=== PATIENT | male | born 2000 | race Hispanic/Latino ===

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

== ENCOUNTER 2022-07-15 21:08 | Emergency (ER) | payer OTHER ==
--- OUTSIDE RECORDS SUMMARY | 2022-07-15 21:18 | XMS REPORT | Continuity of Care Document ---
:2000 Author Organization [facility] t Address [address] [place] [address] [place] [id number] Care Team Providers Name Role Phone Romelia Pena MD Attending Clinician ROMELIA PENA Attending Clinician Unavailable Doctor Unassigned, [place] Attending Clinician Unavailable BRANDON ZHENG Attending Clinician Unavailable 2, [facility] Attending Clinician Unavailable Brandon Middleton Attending Clinician Only, [facility] Bill Attending Clinician Unavailable Payers Payer Name Policy Type Policy Number Effective Date Expiration Date S ource Problems Condition Condition Condition Status Onset Resolution Last Treating Co mments Source Name Details Category Date Date Treatment Clinician Date Truancy Truancy Disease Active Univers 1-26 ity of 00:00: [place] 00 Medical Branch BMI (body BMI (body Disease Active Uni vers mass mass 1-26 ity of index), index), 00:00: [place] pediatric, pediatric, 00 Me dical less than less than Bran ch 5th 5th percentile percentile for age for age ADHD ADHD Disease Active 2016-05 Last Univers (attention (attention 0-18 Assessmen ity of deficit deficit 00:00: t & Plan: [place] hyperactiv hyperactiv 00 Dion is M edical ity ity in need Branch disorder), disorder), of a inattentiv inattentiv refill on e type e type his medicatio ns. He has been out of them for the past few months. He is currently in high school learning remotely. He hopes to graduate this year. He reports that he does well with his medicatio ns. There are no significa nt adverse side effects from the medicatio ns. He is currently on probation and reports that he is following weekly with his youth corrections officer. He denies any drug use currently . He is a new father!Pl an:Contin ue Adderall XR 30 mg each morning and Adderall 10 mg daily after lunch, no dosing change today.Pot ential side effect profile was reviewed with parent/pa miguel angel.Cou nseling services would be beneficia l, resources provided. Encourage d him to keep up with the [facility] for his probation and with his schoolwor k to graduate this year.Jason ratulated him on becoming father.Cu rrent symptoms and call the office with any concerns. He is 19 years old and should transitio n to an adult provider. Began the discussio n with him about this today. We'll provide him resources on his next follow-up visit.I answered specific questions asked by the patient. Allergies, Adverse Reactions, Alerts Allergy Allergy Status Severity Reaction(s) Onset Inactive Treating Comm ents Source Name Type Date Date Clinician NO KNOWN Drug Active Univers ALLERGIE Class ity of [facility] Social History Social Habit Start Date Stop Date Quantity Comments [facility] Exposure to Not sure [facility] SARS-CoV-2 [facility] (event) Branch Alcohol intake 2020-02-02 2020-02-02 Current [facility] 00:00:00 00:00:00 non-drinker of [facility] alcohol [place] (finding) Tobacco use and 2020-02-02 2020-02-02 Never used [facility] y of exposure 00:00:00 00:00:00 [facility] Smoking Status Start Date Stop Date Source Never smoker [facility] Medications Ordered Filled Start Stop Current Ordering Indication Dosage Frequency Signature Comments Components Source Medication Medication Date Date Medication? Clinician (SIG) Name Name amphetamine 2019-05 Yes [id number] 30mg Take 1 Univers -dextroamph 2-30 capsule by it y of etamine 30 00:00: mouth [place] mg 24 hr 00 every Medical capsule morning. Branch dextroamphe 2019-05 Yes [id number] 10mg Take 1 Univers tamine-amph 2-30 tablet by ity of etamine 00:[place]: [place] ([place] 00 lunch. Medical 10 mg Branch tablet amphetamine 2019-05 Yes [id number] 30mg Take 1 Univers -dextroamph 1-09 capsule by it y of etamine 30 00:00: mouth [place] mg 24 hr 00 every Medical capsule morning. Branch dextroamphe 2019-05 Yes [id number] 10mg Take 1 Univers tamine-amph 1-09 tablet by ity of etamine 00:00: [place] ([place] 00 lunch. Medical 10 mg Branch tablet amphetamine 2020- 2020- No [id number] 30mg Take 1 Univers -dextroamph 1-09 12-30 capsule by i ty of etamine 30 00:00: 00:00 mouth [place] mg 24 hr 00 :00 every Medical capsule morning. Branch dextroamphe 2019- 2020- No [id number] 10mg Take 1 Univers tamine-amph 1-09 -30 tablet by it y of etamine 00:00: 00:00 mouth with [place] (ADDERALL) 00 :00 lunch. Medical 10 mg Branch tablet amphetamine 2020- Yes [id number] 30mg Take 1 Univers -dextroamph 0-02 capsule by it y of etamine 30 00:00: mouth [place] mg 24 hr 00 every Medical capsule morning. Branch dextroamphe 2020- Yes [id number] 10mg Take 1 Univers tamine-amph 0-02 tablet by ity of etamine 00:00: [place] ([place] 00 lunch. Medical 10 mg Branch tablet amphetamine 2019- 2020- No [id number] 30mg Take 1 Univers -dextroamph 0-02 11-09 capsule by i ty of etamine 30 00:00: 00:00 mouth [place] mg 24 hr 00 :00 every Medical capsule morning. Branch dextroamphe 2019- 2020- No [id number] 10mg Take 1 Univers tamine-amph 0-02 11-09 tablet by it y of etamine 00:00: 00:00 mouth with [place] (ADDERALL) 00 :00 lunch. Medical 10 mg Branch tablet amphetamine 2020- Yes [id number] 30mg Take 1 Univers -dextroamph 0-01 capsule by it y of etamine 30 00:00: mouth [place] mg 24 hr 00 every Medical capsule morning. Branch dextroamphe 2020- Yes [id number] 10mg Take 1 Univers tamine-amph 0-01 tablet by ity of etamine 00:00: [place] ([place] 00 lunch. Medical 10 mg Branch tablet amphetamine 2020- Yes [id number] 30mg Take 1 Univers -dextroamph 0-01 capsule by it y of etamine 30 00:00: mouth [place] mg 24 hr 00 every Medical capsule morning. Branch dextroamphe 2020- Yes [id number] 10mg Take 1 Univers tamine-amph 0-01 tablet by ity of etamine 00:00: [place] ([place]DER[place] 00 lunch. Medical 10 mg Branch tablet amphetamine 2019-05- No [id number] 30mg Take 1 Univers -dextroamph 0-01 10-02 capsule by i ty of etamine 30 00:00: 00:00 mouth [place] mg 24 hr 00 :00 every Medical capsule morning. Branch dextroamphe 2019-2019- No [id number] 10mg Take 1 Univers tamine-amph 0-01 10-02 tablet by it y of etamine 00:00: 00:00 mouth with [place] (ADDERALL) 00 :00 lunch. Medical 10 mg Branch tablet amphetamine 2019-05- No [id number] 30mg Take 1 Univers -dextroamph 0-01 10-02 capsule by i ty of etamine 30 00:00: 00:00 mouth [place] mg 24 hr 00 :00 every Medical capsule morning. Branch dextroamphe 2019-05- No [id number] 10mg Take 1 Univers tamine-amph 0-01 10-02 tablet by it y of etamine 00:00: 00:00 mouth with [place] (ADDERALL) 00 :00 lunch. Medical 10 mg Branch tablet amphetamine 2019-05- No [id number] 30mg Take 1 Univers -dextroamph 0-01 10-02 capsule by i ty of etamine 30 00:00: 00:00 mouth [place] mg 24 hr 00 :00 every Medical capsule morning. Branch dextroamphe 2019-2019- No [id number] 10mg Take 1 Univers tamine-amph 0-01 10-02 tablet by it y of etamine 00:00: 00:00 mouth with [place] (ADDERALL) 00 :00 lunch. Medical 10 mg Branch tablet dextroamphe 2020- Yes [id number] 10mg Take 1 Univers tamine-amph 7-22 tablet by ity of etamine 00:00: [place] ([place] 00 lunch. Medical 10 mg Branch tablet amphetamine 2020- Yes [id number] 30mg Take 1 Univers -dextroamph 7-22 capsule by it y of etamine 30 00:00: mouth [place] mg 24 hr 00 every Medical capsule morning. Branch dextroamphe 2020-0 Yes [id number] 10mg Take 1 Univers tamine-amph 7-22 tablet by ity of etamine 00:00: [place] ([place]DER[place] 00 lunch. Medical 10 mg Branch tablet amphetamine 2020-0 Yes [id number] 30mg Take 1 Univers -dextroamph 7-22 capsule by it y of etamine 30 00:00: mouth [place] mg 24 hr 00 every Medical capsule morning. Branch dextroamphe 2020-0 Yes [id number] 10mg Take 1 Univers tamine-amph 7-22 tablet by ity of etamine 00:00: [place] (ADDER[place] 00 lunch. Medical 10 mg Branch tablet amphetamine 2020-0 Yes [id number] 30mg Take 1 Univers -dextroamph 7-22 capsule by it y of etamine 30 00:00: mouth [place] mg 24 hr 00 every Medical capsule morning. Branch dextroamphe 2020-0 Yes [id number] 10mg Take 1 Univers tamine-amph 7-22 tablet by ity of etamine 00:00: [place] (ADDERALL[place] 00 lunch. Medical 10 mg Branch tablet amphetamine 2020-0 Yes [id number] 30mg Take 1 Univers -dextroamph 7-22 capsule by it y of etamine 30 00:00: mouth [place] mg 24 hr 00 every Medical capsule morning. Branch dextroamphe 2020-0 2020- No [id number] 10mg Take 1 Univers tamine-amph 7-22 10-01 tablet by it y of etamine 00:00: 00:00 mouth with [place] (ADDERALL) 00 :00 lunch. Medical 10 mg Branch tablet amphetamine 2020-0 2020- No [id number] 30mg Take 1 Univers -dextroamph 7-22 10-01 capsule by i ty of etamine 30 00:00: 00:00 mouth [place] mg 24 hr 00 :00 every Medical capsule morning. Branch dextroamphe 2020-0 2020- No [id number] 10mg Take 1 Univers tamine-amph 7-22 10-01 tablet by it y of etamine 00:00: 00:00 mouth with [place] (ADDERALL) 00 :00 lunch. Medical 10 mg Branch tablet amphetamine 2020-0 2020- No [id number] 30mg Take 1 Univers -dextroamph 7-22 10-01 capsule by i ty of etamine 30 00:00: 00:00 mouth [place] mg 24 hr 00 :00 every Medical capsule morning. Branch azithromyci 2020-0 2020- No [id number] 1g Take 1 Univers n 10-25 Packet by ity of (ZITHROMAX) 00:00: 04:59 mouth once [place] 1 gram 00 :00 now for 1 Medical powder dose. Branch azithromyci 2020-0 2020- No [id number] 1g Take 1 Univers n 10-25 Packet by ity of (ZITHROMAX) 00:00: 04:59 mouth once [place] 1 gram 00 :00 now for 1 Medical powder dose. Branch azithromyci 2020-0 2020- No [id number] 1g Take 1 Univers n 10-25 Packet by ity of (ZITHROMAX) 00:00: 04:59 mouth once [place] 1 gram 00 :00 now for 1 Medical powder dose. Branch azithromyci 2020-0 2020- No [id number] 1g Take 1 Univers n 10-25 Packet by ity of (ZITHROMAX) 00:00: 04:59 mouth once [place] 1 gram 00 :00 now for 1 Medical powder dose. Branch azithromyci 2020-0 2020- No [id number] 1g Take 1 Univers n 10-25 Packet by ity of (ZITHROMAX) 00:00: 04:59 mouth once [place] 1 gram 00 :00 now for 1 Medical powder dose. Branch dextroamphe 2020-0 Yes [id number] 10mg Take 1 Univers tamine-amph 6-23 tablet by ity of etamine 00:00: mouth [place] (ADDERALL[place] 00 lunch. Medical 10 mg Branch tablet amphetamine 2020-0 Yes [id number] 30mg Take 1 Univers -dextroamph 6-23 capsule by it y of etamine 30 00:00: mouth [place] mg 24 hr 00 every Medical capsule morning. Branch dextroamphe 2020-0 Yes [id number] 10mg Take 1 Univers tamine-amph 6-23 tablet by ity of etamine 00:00: mouth [place] (ADDERALL[place] 00 lunch. Medical 10 mg Branch tablet amphetamine 2020-0 Yes [id number] 30mg Take 1 Univers -dextroamph 6-23 capsule by it y of etamine 30 00:00: mouth [place] mg 24 hr 00 every Medical capsule morning. Branch dextroamphe 2020-0 Yes [id number] 10mg Take 1 Univers tamine-amph 6-23 tablet by ity of etamine 00:00: mouth [place] (ADDERALL[place] 00 lunch. Medical 10 mg Branch tablet amphetamine 2020-0 Yes [id number] 30mg Take 1 Univers -dextroamph 6-23 capsule by it y of etamine 30 00:00: mouth [place] mg 24 hr 00 every Medical capsule morning. Branch dextroamphe 2020-0 Yes [id number] 10mg Take 1 Univers tamine-amph 6-23 tablet by ity of etamine 00:00: mouth [place] (ADDERALL[place] 00 lunch. Medical 10 mg Branch tablet amphetamine 2020-0 Yes [id number] 30mg Take 1 Univers -dextroamph 6-23 capsule by it y of etamine 30 00:00: mouth [place] mg 24 hr 00 every Medical capsule morning. Branch dextroamphe 2020-0 Yes [id number] 10mg Take 1 Univers tamine-amph 6-23 tablet by ity of etamine 00:00: mouth [place] (ADDERALL) 00 lunch. Medical 10 mg Branch tablet amphetamine 2020-0 Yes [id number] 30mg Take 1 Univers -dextroamph 6-23 capsule by it y of etamine 30 00:00: mouth [place] mg 24 hr 00 every Medical capsule morning. Branch dextroamphe 2020-0 Yes [id number] 10mg Take 1 Univers tamine-amph 6-23 tablet by ity of etamine 00:00: mouth [place] (ADDERALL) 00 lunch. Medical 10 mg Branch tablet amphetamine 2020-0 Yes [id number] 30mg Take 1 Univers -dextroamph 6-23 capsule by it y of etamine 30 00:00: mouth [place] mg 24 hr 00 every Medical capsule morning. Branch dextroamphe 2020-0 Yes [id number] 10mg Take 1 Univers tamine-amph 6-23 tablet by ity of etamine 00:00: mouth [place] (ADDERALL) 00 lunch. Medical 10 mg Branch tablet amphetamine 2020-0 Yes [id number] 30mg Take 1 Univers -dextroamph 6-23 capsule by it y of etamine 30 00:00: mouth [place] mg 24 hr 00 every Medical capsule morning. Branch dextroamphe 2020-0 2020- No [id number] 10mg Take 1 Univers tamine-amph 6-23 07-22 tablet by it y of etamine 00:00: 00:00 mouth with [place] (ADDERALL) 00 :00 lunch. Medical 10 mg Branch tablet amphetamine 2020-0 2020- No [id number] 30mg Take 1 Univers -dextroamph 6-23 07-22 capsule by i ty of etamine 30 00:00: 00:00 mouth [place] mg 24 hr 00 :00 every Medical capsule morning. Branch dextroamphe 2020-0 Yes [id number] 10mg Take 1 Univers tamine-amph 5-22 tablet by ity of etamine 00:00: mouth [place] (ADDERALL[place] 00 lunch. Medical 10 mg Branch tablet amphetamine 2020-0 Yes [id number] 30mg Take 1 Univers -dextroamph 5-22 capsule by it y of etamine 30 00:00: mouth [place] mg 24 hr 00 every Medical capsule morning. Branch dextroamphe 2020-0 2020- No [id number] 10mg Take 1 Univers tamine-amph 5-22 06-23 tablet by it y of etamine 00:00: 00:00 mouth with [place] (ADDERALL) 00 :00 lunch. Medical 10 mg Branch tablet amphetamine 2020-0 2020- No [id number] 30mg Take 1 Univers -dextroamph 5-22 06-23 capsule by i ty of etamine 30 00:00: 00:00 mouth [place] mg 24 hr 00 :00 every Medical capsule morning. Branch amphetamine 2020-0 Yes [id number] 30mg Take 1 Univers -dextroamph 4-20 capsule by it y of etamine 30 00:00: mouth [place] mg 24 hr 00 every Medical capsule morning. Branch dextroamphe 2020-0 Yes [id number] 10mg Take 1 Univers tamine-amph 4-20 tablet by ity of etamine 00:00: mouth [place] (ADDER[place] 00 lunch. Medical 10 mg Branch tablet amphetamine 2020-0 Yes [id number] 30mg Take 1 Univers -dextroamph 4-20 capsule by it y of etamine 30 00:00: mouth [place] mg 24 hr 00 every Medical capsule morning. Branch dextroamphe 2020-0 Yes [id number] 10mg Take 1 Univers tamine-amph 4-20 tablet by ity of etamine 00:00: mouth [place] (ADDER[place] 00 lunch. Medical 10 mg Branch tablet amphetamine 2020-0 Yes [id number] 30mg Take 1 Univers -dextroamph 4-20 capsule by it y of etamine 30 00:00: mouth [place] mg 24 hr 00 every Medical capsule morning. Branch dextroamphe 2020-0 Yes [id number] 10mg Take 1 Univers tamine-amph 4-20 tablet by ity of etamine 00:00: mouth [place] (ADDER[place] 00 lunch. Medical 10 mg Branch tablet amphetamine 2020-0 2020- No [id number] 30mg Take 1 Univers -dextroamph 4-20 05-22 capsule by i ty of etamine 30 00:00: 00:00 mouth [place] mg 24 hr 00 :00 every Medical capsule morning. Branch dextroamphe 2020-0 2020- No [id number] 10mg Take 1 Univers tamine-amph 4-20 05-22 tablet by it y of etamine 00:00: 00:00 mouth with [place] (ADDERALL) 00 :00 lunch. Medical 10 mg Branch tablet dextroamphe 2020-0 Yes [id number] 10mg Take 1 Univers tamine-amph 3-18 tablet by ity of etamine 00:00: mouth [place] (ADDER[place] 00 lunch. Medical 10 mg Branch tablet amphetamine 2020-0 Yes [id number] 30mg Take 1 Univers -dextroamph 3-18 capsule by it y of etamine 30 00:00: mouth [place] mg 24 hr 00 every Medical capsule morning. Branch dextroamphe 2020-0 2020- No [id number] 10mg Take 1 Univers tamine-amph 3-18 04-20 tablet by it y of etamine 00:00: 00:00 mouth with [place] (ADDERALL) 00 :00 lunch. Medical 10 mg Branch tablet amphetamine 2020-0 2020- No [id number] 30mg Take 1 Univers -dextroamph 3-18 04-20 capsule by i ty of etamine 30 00:00: 00:00 mouth [place] mg 24 hr 00 :00 every Medical capsule morning. Branch clindamycin 2020-0 Yes [id number] Apply to Univers 1 % gel 2-10 area(s) 2 ity of 00:00: (two) [place] 00 times Medical daily. Branch clindamycin 2020-0 Yes [id number] Apply to Univers 1 % gel 2-10 area(s) 2 ity of 00:00: (two) [place] 00 times Medical daily. Branch clindamycin 2020-0 Yes [id number] Apply to Univers 1 % gel 2-10 area(s) 2 ity of 00:00: (two) [place] 00 times Medical daily. Branch clindamycin 2020-0 Yes [id number] Apply to Univers 1 % gel 2-10 area(s) 2 ity of 00:00: (two) [place] 00 times Medical daily. Branch clindamycin 2020-0 Yes [id number] Apply to Univers 1 % gel 2-10 area(s) 2 ity of 00:00: (two) [place] 00 times Medical daily. Branch clindamycin 2020-0 Yes [id number] Apply to Univers 1 % gel 2-10 area(s) 2 ity of 00:00: (two) [place] 00 times Medical daily. Branch clindamycin 2020-0 Yes [id number] Apply to Univers 1 % gel 2-10 area(s) 2 ity of 00:00: (two) [place] 00 times Medical daily. Branch clindamycin 2020-0 Yes [id number] Apply to Univers 1 % gel 2-10 area(s) 2 ity of 00:00: (two) [place] 00 times Medical daily. Branch clindamycin 2020-0 Yes [id number] Apply to Univers 1 % gel 2-10 area(s) 2 ity of 00:00: (two) [place] 00 times Medical daily. Branch clindamycin 2020-0 Yes [id number] Apply to Univers 1 % gel 2-10 area(s) 2 ity of 00:00: (two) [place] 00 times Medical daily. Branch clindamycin 2020-0 Yes [id number] Apply to Univers 1 % gel 2-10 area(s) 2 ity of 00:00: (two) [place] 00 times Medical daily. Branch clindamycin 2020-0 Yes [id number] Apply to Univers 1 % gel 2-10 area(s) 2 ity of 00:00: (two) [place] 00 times Medical daily. Branch clindamycin 2020-0 Yes [id number] Apply to Univers 1 % gel 2-10 area(s) 2 ity of 00:00: (two) [place] 00 times Medical daily. Branch clindamycin 2020-0 Yes [id number] Apply to Univers 1 % gel 2-10 area(s) 2 ity of 00:00: (two) [place] 00 times Medical daily. Branch clindamycin 2020-0 Yes [id number] Apply to Univers 1 % gel 2-10 area(s) 2 ity of 00:00: (two) [place] 00 times Medical daily. Branch clindamycin 2020-0 Yes [id number] Apply to Univers 1 % gel 2-10 area(s) 2 ity of 00:00: (two) [place] 00 times Medical daily. Branch clindamycin 2020-0 Yes [id number] Apply to Univers 1 % gel 2-10 area(s) 2 ity of 00:00: (two) [place] 00 times Medical daily. Branch clindamycin 2020-0 Yes [id number] Apply to Univers 1 % gel 2-10 area(s) 2 ity of 00:00: (two) [place] 00 times Medical daily. Branch clindamycin 2020-0 Yes [id number] Apply to Univers 1 % gel 2-10 area(s) 2 ity of 00:00: (two) [place] 00 times Medical daily. Branch clindamycin 2020-0 Yes [id number] Apply to Univers 1 % gel 2-10 area(s) 2 ity of 00:00: (two) [place] 00 times Medical daily. Branch clindamycin 2020-0 Yes [id number] Apply to Univers 1 % gel 2-10 area(s) 2 ity of 00:00: (two) [place] 00 times Medical daily. Branch clindamycin 2020-0 Yes [id number] Apply to Univers 1 % gel 2-10 area(s) 2 ity of 00:00: (two) [place] 00 times Medical daily. Branch clindamycin 2020-0 Yes [id number] Apply to Univers 1 % gel 2-10 area(s) 2 ity of 00:00: (two) [place] 00 times Medical daily. Branch clindamycin 2020-0 Yes [id number] Apply to Univers 1 % gel 2-10 area(s) 2 ity of 00:00: (two) [place] 00 times Medical daily. Branch benzoyl 2020-0 Yes [id number] Apply to Un moose peroxide 10 2-04 area(s) ity o f % gel 00:00: daily. [place] 00 Apply thin Medical layer to Branch acne prone areas daily, may increase to BID as tolerated. benzoyl 2020-0 Yes [id number] Apply to Un moose peroxide 10 2-04 area(s) ity o f % gel 00:00: daily. [place] 00 Apply thin Medical layer to Branch acne prone areas daily, may increase to BID as tolerated. benzoyl 2020-0 Yes [id number] Apply to Un moose peroxide 10 2-04 area(s) ity o f % gel 00:00: daily. [place] 00 Apply thin Medical layer to Branch acne prone areas daily, may increase to BID as tolerated. benzoyl 2020-0 Yes [id number] Apply to Un moose peroxide 10 2-04 area(s) ity o f % gel 00:00: daily. [place] 00 Apply thin Medical layer to Branch acne prone areas daily, may increase to BID as tolerated. benzoyl 2020-0 Yes [id number] Apply to Un moose peroxide 10 2-04 area(s) ity o f % gel 00:00: daily. [place] 00 Apply thin Medical layer to Branch acne prone areas daily, may increase to BID as tolerated. benzoyl 2020-0 Yes [id number] Apply to Un moose peroxide 10 2-04 area(s) ity o f % gel 00:00: daily. [place] 00 Apply thin Medical layer to Branch acne prone areas daily, may increase to BID as tolerated. benzoyl 2020-0 Yes [id number] Apply to Un moose peroxide 10 2-04 area(s) ity o f % gel 00:00: daily. [place] 00 Apply thin Medical layer to Branch acne prone areas daily, may increase to BID as tolerated. benzoyl 2020-0 Yes [id number] Apply to Un moose peroxide 10 2-04 area(s) ity o f % gel 00:00: daily. [place] 00 Apply thin Medical layer to Branch acne prone areas daily, may increase to BID as tolerated. benzoyl 2020-0 Yes [id number] Apply to Un moose peroxide 10 2-04 area(s) ity o f % gel 00:00: daily. [place] 00 Apply thin Medical layer to Branch acne prone areas daily, may increase to BID as tolerated. benzoyl 2020-0 Yes [id number] Apply to Un moose peroxide 10 2-04 area(s) ity o f % gel 00:00: daily. [place] 00 Apply thin Medical layer to Branch acne prone areas daily, may increase to BID as tolerated. benzoyl 2020-0 Yes [id number] Apply to Un moose peroxide 10 2-04 area(s) ity o f % gel 00:00: daily. [place] 00 Apply thin Medical layer to Branch acne prone areas daily, may increase to BID as tolerated. benzoyl 2020-0 Yes [id number] Apply to Un moose peroxide 10 2-04 area(s) ity o f % gel 00:00: daily. [place] 00 Apply thin Medical layer to Branch acne prone areas daily, may increase to BID as tolerated. benzoyl 2020-0 Yes [id number] Apply to Un moose peroxide 10 2-04 area(s) ity o f % gel 00:00: daily. [place] 00 Apply thin Medical layer to Branch acne prone areas daily, may increase to BID as tolerated. benzoyl 2020-0 Yes [id number] Apply to Un moose peroxide 10 2-04 area(s) ity o f % gel 00:00: daily. [place] 00 Apply thin Medical layer to Branch acne prone areas daily, may increase to BID as tolerated. benzoyl 2020-0 Yes [id number] Apply to Un moose peroxide 10 2-04 area(s) ity o f % gel 00:00: daily. [place] 00 Apply thin Medical layer to Branch acne prone areas daily, may increase to BID as tolerated. benzoyl 2020-0 Yes [id number] Apply to Un moose peroxide 10 2-04 area(s) ity o f % gel 00:00: daily. [place] 00 Apply thin Medical layer to Branch acne prone areas daily, may increase to BID as tolerated. benzoyl 2020-0 Yes [id number] Apply to Un moose peroxide 10 2-04 area(s) ity o f % gel 00:00: daily. [place] 00 Apply thin Medical layer to Branch acne prone areas daily, may increase to BID as tolerated. benzoyl 2020-0 Yes [id number] Apply to Un moose peroxide 10 2-04 area(s) ity o f % gel 00:00: daily. [place] 00 Apply thin Medical layer to Branch acne prone areas daily, may increase to BID as tolerated. benzoyl 2020-0 Yes [id number] Apply to Un moose peroxide 10 2-04 area(s) ity o f % gel 00:00: daily. [place] 00 Apply thin Medical layer to Branch acne prone areas daily, may increase to BID as tolerated. benzoyl 2020-0 Yes [id number] Apply to Un moose peroxide 10 2-04 area(s) ity o f % gel 00:00: daily. [place] 00 Apply thin Medical layer to Branch acne prone areas daily, may increase to BID as tolerated. benzoyl 2020-0 Yes [id number] Apply to Un moose peroxide 10 2-04 area(s) ity o f % gel 00:00: daily. [place] 00 Apply thin Medical layer to Branch acne prone areas daily, may increase to BID as tolerated. benzoyl 2020-0 Yes [id number] Apply to Un moose peroxide 10 2-04 area(s) ity o f % gel 00:00: daily. 00 Apply thin Medical layer to Branch acne prone areas daily, may increase to BID as tolerated. benzoyl 2020-0 Yes [id number] Apply to Un moose peroxide 10 2-04 area(s) ity o f % gel 00:00: daily. Apply thin Medical layer to Branch acne prone areas daily, may increase to BID as tolerated. benzoyl 2020-0 Yes [id number] Apply to Un moose peroxide 10 2-04 area(s) ity o f % gel 00:00: daily. Apply thin Medical layer to Branch acne prone areas daily, may increase to BID as tolerated. dextroamphe 2020-0 Yes [id number] 10mg Take 1 Univers tamine-amph 1-31 tablet by ity of etamine 00:00: [place] ([place] 00 lunch. Medical 10 mg Branch tablet amphetamine 2020-0 Yes [id number] 30mg Take 1 Univers -dextroamph 1-31 capsule by it y of etamine 30 00:00: mouth [place] mg 24 hr 00 every Medical capsule morning. Branch dextroamphe 2020-0 Yes [id number] 10mg Take 1 Univers tamine-amph 1-31 tablet by ity of etamine 00:00: mouth [place] lunch. [facility] 10 mg Branch tablet amphetamine 2020-0 Yes [id number] 30mg Take 1 [facility] -dextroamph 1-31 capsule by it y of etamine 30 00:00: mouth [place] mg 24 hr 00 every Medical capsule morning. Branch dextroamphe 2020-0 2020- No [id number] 10mg Take 1 [facility] tamine-amph 1-31 03-18 tablet by it y of etamine 00:00: 00:00 mouth [place] (ADDERALL) 00 :00 lunch. Medical 10 mg Branch tablet amphetamine 2020-0 2020- No [id number] 30mg Take 1 [facility] -dextroamph 1-31 03-18 capsule by i ty of etamine 30 00:00: 00:00 mouth [place] mg 24 hr 00 :00 every Medical capsule morning. Branch tretinoin 2020-0 2020- No [id number] Apply to [facility] 0.025 % 06-01 area(s) at ity o f cream 00:00: 05:59 bedtime [place] 00 :00 for 30 Medical days. Branch tretinoin 2020-0 2020- No [id number] Apply to [facility] 0.025 % 06-01 area(s) at ity o f cream 00:00: 05:59 bedtime [place] 00 :00 for 30 Medical days. Branch amphetamine 2020-0 Yes [id number] 30mg Take 1 [facility] -dextroamph 1-24 capsule by it y of etamine 30 00:00: mouth [place] mg 24 hr 00 every Medical capsule morning. Branch dextroamphe 2020-0 Yes [id number] 10mg Take 1 [facility] tamine-amph 1-24 tablet by [facility] etamine 00:00: [place] ([place] 00 lunch. Medical 10 mg [facility] tablet amphetamine 2020-0 Yes [id number] 30mg Take 1 [facility] -dextroamph 1-24 capsule by it y of etamine 30 00:00: mouth [place] mg 24 hr 00 every Medical capsule morning. Branch dextroamphe 2020-0 Yes [id number] 10mg Take 1 [facility] tamine-amph 1-24 tablet by [facility] etamine 00:[place]: [place] ([place] 00 lunch. Medical 10 mg [facility] tablet amphetamine 2020-0 2020- No [id number] 30mg Take 1 [facility] -dextroamph 1-24 -31 capsule by i ty of etamine 30 00:00: 00:00 mouth [place] mg 24 hr 00 :00 every Medical capsule morning. Branch dextroamphe 2020-0 2020- No [id number] 10mg Take 1 [facility] tamine-amph 1-24 -31 tablet by it y of etamine 00:00: 00:00 mouth [place] ([place]DERALL) 00 :00 lunch. Medical 10 mg Branch tablet amphetamine 2020-0 Yes [id number] 30mg Take 1 [facility] -dextroamph 1-07 capsule by it y of etamine 30 00:00: mouth [place] mg 24 hr 00 every Medical capsule morning. Branch dextroamphe 2020-0 Yes [id number] 10mg Take 1 [facility] tamine-amph 1-07 tablet by [facility] etamine 00:00: [place] ([place] 00 lunch. Medical 10 mg [facility] tablet amphetamine 2019- 2020- No [id number] 30mg Take 1 [facility] -dextroamph 1-07 -24 capsule by i ty of etamine 30 00:00: 00:00 mouth [place] mg 24 hr 00 :00 every Medical capsule morning. Branch dextroamphe 2020-0 2019- No [id number] 10mg Take 1 [facility] tamine-amph 1-07 -24 tablet by it y of etamine 00:00: 00:00 mouth [place] ([place]DER[place]) 00 :00 lunch. Medical 10 mg Branch tablet amphetamine 2019-2019- No [id number] 30mg Take 1 [facility] -dextroamph 1-07 -24 capsule by i ty of etamine 30 00:00: 00:00 mouth [place] mg 24 hr 00 :00 every Medical capsule morning. Branch dextroamphe 2019-2019- No [id number] 10mg Take 1 [facility] tamine-amph 1-07 -24 tablet by it y of etamine 00:00: 00:00 mouth [place] ([place]DERALL) 00 :00 lunch. Medical 10 mg Branch tablet amphetamine 2019- 2020- No [id number] 30mg Take 1 [facility] -dextroamph 1-07 -24 capsule by i ty of etamine 30 00:00: 00:00 mouth [place] mg 24 hr 00 :00 every Medical capsule morning. Branch dextroamphe 2020-0 2019- No [id number] 10mg Take 1 [facility] tamine-amph 1-07 -24 tablet by it y of etamine 00:00: 00:00 mouth [place] ([place]DERALL) 00 :00 lunch. Medical 10 mg Branch tablet dextroamphe 2018- Yes [id number] 10mg Take 1 [facility] tamine-amph 9-05 tablet by [facility] etamine 00:00: [place] ([place] 00 lunch. Medical 10 mg Branch tablet amphetamine 2018- Yes [id number] 30mg Take 1 [facility] -dextroamph 9-05 capsule by it y of etamine 30 00:00: mouth [place] mg 24 hr 00 every Medical capsule morning. Branch amphetamine 2019-0 Yes [id number] 30mg Take 1 [facility] -dextroamph 8-09 capsule by it y of etamine 30 00:00: mouth [place] mg 24 hr 00 every Medical capsule morning. Branch dextroamphe Yes [id number] 10mg Take 1 [facility] tamine-amph 8-09 tablet by [facility] etamine 00:00: mouth [place] ([place] 00 lunch. Medical 10 mg Branch tablet amphetamine Yes [id number] 30mg Take 1 [facility] -dextroamph 8-09 capsule by it y of etamine 30 00:00: mouth [place] mg 24 hr 00 every Medical capsule morning. Branch dextroamphe Yes [id number] 10mg Take 1 [facility] tamine-amph 8-09 tablet by [facility] etamine 00:00: mouth [place] ([place] 00 lunch. Medical 10 mg Branch tablet dextroamphe 2019- No [id number] 10mg Take 1 [facility] tamine-amph 8-09 09-05 tablet by it y of etamine 00:00: 00:00 mouth [place] ([place]DERALL) 00 :00 lunch. Medical 10 mg Branch tablet amphetamine 2019- No [id number] 30mg Take 1 [facility] -dextroamph 8-09 09-05 capsule by i ty of etamine 30 00:00: 00:00 mouth [place] mg 24 hr 00 :00 every Medical capsule morning. Branch amphetamine 2019- No [id number] 30mg Take 1 [facility] -dextroamph 7-03 08-09 capsule by i ty of etamine 30 00:00: 00:00 mouth [place] mg 24 hr 00 :00 every Medical capsule morning. Branch dextroamphe 2019- No [id number] 10mg Take 1 [facility] tamine-amph 7-03 08-09 tablet by it y of etamine 00:00: 00:00 mouth [place] ([place]DER[place]) 00 :00 lunch. Medical 10 mg Branch tablet Immunizations Ordered Immunization Filled Immunization Date Status Commen ts Source Name Name Meningococcal 2019-05-24 Completed University of Polysaccharide 00:00:00 [facility] nelly (groups A, C, Y and Branc h W-135) conjugate vaccine (MCV4P) Meningococcal B, 2019-05-24 Completed Universi ty of Recombinant 00:00:00 [facility] Meningococcal 2019-05-24 Completed [facility] of Polysaccharide 00:00:00 [place] [facility] (groups A, C, Y and Branc h W-135) conjugate vaccine (MCV4P) Meningococcal B, 2019-05-24 Completed Universi ty of Recombinant 00:00:00 [facility] Meningococcal 2019-05-24 Completed [facility] of Polysaccharide 00:00:00 [place] [facility] (groups A, C, Y and Branc h W-135) conjugate vaccine (MCV4P) Meningococcal B, 2019-05-24 Completed Universi ty of Recombinant 00:00:00 [facility] Meningococcal 2019-05-24 Completed [facility] of Polysaccharide 00:00:00 [place] [facility] (groups A, C, Y and Branc h W-135) conjugate vaccine (MCV4P) Meningococcal B, 2019-05-24 Completed Universi ty of Recombinant 00:00:00 [facility] Meningococcal 2019-05-24 Completed [facility] of Polysaccharide 00:00:00 [place] [facility] (groups A, C, Y and Branc h W-135) conjugate vaccine (MCV4P) Meningococcal B, 2019-05-24 Completed Universi ty of Recombinant 00:00:00 [facility] Meningococcal 2019-05-24 Completed [facility] of Polysaccharide 00:00:00 [place] [facility] (groups A, C, Y and Branc h W-135) conjugate vaccine (MCV4P) Meningococcal B, 2019-05-24 Completed Universi ty of Recombinant 00:00:00 [facility] Meningococcal 2019-05-24 Completed [facility] of Polysaccharide 00:00:00 [place] [facility] (groups A, C, Y and Branc h W-135) conjugate vaccine (MCV4P) Meningococcal B, 2019-05-24 Completed Universi ty of Recombinant 00:00:00 [facility] Meningococcal 2019-05-24 Completed [facility] of Polysaccharide 00:00:00 [place] [facility] (groups A, C, Y and Branc h W-135) conjugate vaccine (MCV4P) Meningococcal B, 2019-05-24 Completed Universi ty of Recombinant 00:00:00 [facility] Meningococcal 2019-05-24 Completed [facility] of Polysaccharide 00:00:00 [place] [facility] (groups A, C, Y and Branc h W-135) conjugate vaccine (MCV4P) Meningococcal B, 2019-05-24 Completed Universi ty of Recombinant 00:00:00 [facility] Meningococcal 2019-05-24 Completed [facility] of Polysaccharide 00:00:00 [place] [facility] (groups A, C, Y and Branc h W-135) conjugate vaccine (MCV4P) Meningococcal B, 2019-05-24 Completed Universi ty of Recombinant 00:00:00 [facility] Meningococcal 2019-05-24 Completed [facility] of Polysaccharide 00:00:00 [place] [facility] (groups A, C, Y and Branc h W-135) conjugate vaccine (MCV4P) Meningococcal B, 2019-05-24 Completed Universi ty of Recombinant 00:00:00 [facility] Meningococcal 2019-05-24 Completed [facility] of Polysaccharide 00:00:00 [place] [facility] (groups A, C, Y and Branc h W-135) conjugate vaccine (MCV4P) Meningococcal B, 2019-05-24 Completed Universi ty of Recombinant 00:00:00 [facility] Meningococcal 2019-05-24 Completed [facility] of Polysaccharide 00:00:00 [place] [facility] (groups A, C, Y and Branc h W-135) conjugate vaccine (MCV4P) Meningococcal B, 2019-05-24 Completed Universi ty of Recombinant 00:00:00 [facility] Meningococcal 2019-05-24 Completed [facility] of Polysaccharide 00:00:00 [place] [facility] (groups A, C, Y and Branc h W-135) conjugate vaccine (MCV4P) Meningococcal B, 2019-05-24 Completed Universi ty of Recombinant 00:00:00 [facility] Meningococcal 2019-05-24 Completed [facility] of Polysaccharide 00:00:00 [place] [facility] (groups A, C, Y and Branc h W-135) conjugate vaccine (MCV4P) Meningococcal B, 2019-05-24 Completed Universi ty of Recombinant 00:00:00 [facility] Meningococcal 2019-05-24 Completed University of Polysaccharide 00:00:00 [place] [facility] (groups A, C, Y and Branc h W-135) conjugate vaccine (MCV4P) Meningococcal B, 2019-05-24 Completed Universi ty of Recombinant 00:00:00 [facility] Meningococcal 2019-05-24 Completed [facility] of Polysaccharide 00:00:00 [place] [facility] (groups A, C, Y and Branc h W-135) conjugate vaccine (MCV4P) Meningococcal B, 2019-05-24 Completed Universi ty of Recombinant 00:00:00 [facility] Meningococcal 2019-05-24 Completed [facility] of Polysaccharide 00:00:00 [place] [facility] (groups A, C, Y and Branc h W-135) conjugate vaccine (MCV4P) Meningococcal B, 2019-05-24 Completed Universi ty of Recombinant 00:00:00 [facility] Meningococcal 2019-05-24 Completed University of Polysaccharide 00:00:00 [place] [facility] (groups A, C, Y and Branc h W-135) conjugate vaccine (MCV4P) Meningococcal B, 2019-05-24 Completed Universi ty of Recombinant 00:00:00 [facility] Meningococcal 2019-05-24 Completed [facility] of Polysaccharide 00:00:00 [place] [facility] (groups A, C, Y and Branc h W-135) conjugate vaccine (MCV4P) Meningococcal B, 2019-05-24 Completed Universi ty of Recombinant 00:00:00 [facility] Meningococcal 2019-05-24 Completed [facility] of Polysaccharide 00:00:00 [place] [facility] (groups A, C, Y and Branc h W-135) conjugate vaccine (MCV4P) Meningococcal B2019-05-24 Completed Universi ty of Recombinant 00:00:00 [facility] Meningococcal 2019-05-24 Completed [facility] of Polysaccharide 00:00:00 [place] [facility] (groups A, C, Y and Branc h W-135) conjugate vaccine (MCV4P) Meningococcal B, 2019-05-24 Completed Universi ty of Recombinant 00:00:00 [facility] Meningococcal 2019-05-24 Completed [facility] of Polysaccharide 00:00:00 [place] [facility] (groups A, C, Y and Branc h W-135) conjugate vaccine (MCV4P) Meningococcal B, 2019-05-24 Completed Universi ty of Recombinant 00:00:00 [facility] Meningococcal 2019-05-24 Completed [facility] of Polysaccharide 00:00:00 [place] [facility] (groups A, C, Y and Branc h W-135) conjugate vaccine (MCV4P) Meningococcal B, 2019-05-24 Completed Universi ty of Recombinant 00:00:00 [facility] Meningococcal 2019-05-24 Completed [facility] of Polysaccharide 00:00:00 [place] [facility] (groups A, C, Y and Branc h W-135) conjugate vaccine (MCV4P) Meningococcal B, 2019-05-24 Completed Universi ty of Recombinant 00:00:00 [facility] Meningococcal 2019-05-24 Completed [facility] of Polysaccharide 00:00:00 [place] [facility] (groups A, C, Y and Branc h W-135) conjugate vaccine (MCV4P) Meningococcal B, 2019-05-24 Completed Universi ty of Recombinant 00:00:00 [facility] Meningococcal 2019-05-24 Completed [facility] of Polysaccharide 00:00:00 [place] [facility] (groups A, C, Y and Branc h W-135) conjugate vaccine (MCV4P) Meningococcal B, 2019-05-24 Completed Universi ty of Recombinant 00:00:00 [facility] Meningococcal 2019-05-24 Completed [facility] of Polysaccharide 00:00:00 [place] [facility] (groups A, C, Y and Branc h W-135) conjugate vaccine (MCV4P) Meningococcal B, 2019-05-24 Completed Universi ty of Recombinant 00:00:00 [facility] Meningococcal 2019-05-24 Completed [facility] of Polysaccharide 00:00:00 [place] [facility] (groups A, C, Y and Branc h W-135) conjugate vaccine (MCV4P) Meningococcal B, 2019-05-24 Completed Universi ty of Recombinant 00:00:00 [facility] HEPATITIS A 2017-12-22 Completed University of 00:00:00 [facility] HEPATITIS A 2017-12-22 Completed University of 00:00:00 [facility] HEPATITIS A 2017-12-22 Completed University of 00:00:00 [facility] HEPATITIS A 2017-12-22 Completed University of 00:00:00 [facility] HEPATITIS A 2017-12-22 Completed University of 00:00:00 [facility] HEPATITIS A 2017-12-22 Completed University of 00:00:00 [facility] HEPATITIS A 2017-12-22 Completed University of 00:00:00 [facility] HEPATITIS A 2017-12-22 Completed University of 00:00:00 [facility] HEPATITIS A 2017-12-22 Completed University of 00:00:00 [facility] HEPATITIS A 2017-12-22 Completed University of 00:00:00 [facility] HEPATITIS A 2017-12-22 Completed University of 00:00:00 [facility] HEPATITIS A 2017-12-22 Completed University of 00:00:00 [facility] HEPATITIS A 2017-12-22 Completed [facility] 00:00:00 [place] [facility] HEPATITIS A 2017-12-22 Completed University of 00:00:00 [place] [facility] HEPATITIS A 2017-12-22 Completed University of 00:00:00 [place] [facility] HEPATITIS A 2017-12-22 Completed University of 00:00:00 [place] [facility] HEPATITIS A 2017-12-22 Completed University of 00:00:00 [place] [facility] HEPATITIS A 2017-12-22 Completed University of 00:00:00 [place] [facility] HEPATITIS A 2017-12-22 Completed University of 00:00:00 [place] [facility] HEPATITIS A 2017-12-22 Completed University of 00:00:00 [place] [facility] HEPATITIS A 2017-12-22 Completed University of 00:00:00 [place] [facility] HEPATITIS A 2017-12-22 Completed University of 00:00:00 [place] [facility] HEPATITIS A 2017-12-22 Completed University of 00:00:00 [place] [facility] HEPATITIS A 2017-12-22 Completed University of 00:00:00 [place] [facility] HEPATITIS A 2017-12-22 Completed University of 00:00:00 [place] [facility] HEPATITIS A 2017-12-22 Completed University of 00:00:00 [place] [facility] HEPATITIS A 2017-12-22 Completed University of 00:00:00 [place] [facility] HEPATITIS A 2017-12-22 Completed University of 00:00:00 [place] [facility] HEPATITIS A 2017-12-22 Completed University of 00:00:00 [place] [facility] HEPATITIS A 2017-12-22 Completed University of 00:00:00 [place] [facility] HEPATITIS A 2017-12-22 Completed University of 00:00:00 [facility] HEPATITIS A 2017-12-22 Completed University of 00:00:00 [facility] HPV9 2017-06-24 Completed University of 00:00:00 [place] [facility] HPV9 2017-06-24 Completed University of 00:00:00 [place] [facility] HPV9 2017-06-24 Completed University of 00:00:00 [place] [facility] HPV9 2017-06-24 Completed University of 00:00:00 [place] [facility] HPV9 2017-06-24 Completed [facility] of 00:00:00 [place] [facility] HPV9 2017-06-24 Completed [facility] of 00:00:00 [place] [facility] HPV9 2017-06-24 Completed University of 00:00:00 [place] [facility] HPV9 2017-06-24 Completed University of 00:00:00 [place] [facility] HPV9 2017-06-24 Completed University of 00:00:00 [place] [facility] HPV9 2017-06-24 Completed University of 00:00:00 [place] [facility] HPV9 2017-06-24 Completed University of 00:00:00 [place] [facility] HPV9 2017-06-24 Completed University of 00:00:00 [place] [facility] HPV9 2017-06-24 Completed University of 00:00:00 [place] [facility] HPV9 2017-06-24 Completed University of 00:00:00 [place] [facility] HPV9 2017-06-24 Completed University of 00:00:00 [place] [facility] HPV9 2017-06-24 Completed University of 00:00:00 [place] [facility] HPV9 2017-06-24 Completed University of 00:00:00 [place] [facility] HPV9 2017-06-24 Completed University of 00:00:00 [place] [facility] HPV9 2017-06-24 Completed University of 00:00:00 [place] [facility] HPV9 2017-06-24 Completed University of 00:00:00 [place] [facility] HPV9 2017-06-24 Completed University of 00:00:00 [place] [facility] HPV9 2017-06-24 Completed University of 00:00:00 [place] [facility] HPV9 2017-06-24 Completed University of 00:00:00 [place] [facility] HPV9 2017-06-24 Completed University of 00:00:00 [place] [facility] HPV9 2017-06-24 Completed University of 00:00:00 [place] [facility] HPV9 2017-06-24 Completed University of 00:00:00 [place] [facility] HPV9 2017-06-24 Completed University of 00:00:00 [place] [facility] HPV9 2017-06-24 Completed University of 00:00:00 [place] [facility] HPV9 2017-06-24 Completed University of 00:00:00 [place] [facility] HPV9 2017-06-24 Completed University of 00:00:00 [place] [facility] HPV9 2017-06-24 Completed University of 00:00:00 [place] [facility] HPV9 2017-06-24 Completed University of 00:00:00 [place] [facility] HPV9 2016-07-21 Completed University of 00:00:00 [place] [facility] HPV9 2016-07-21 Completed University of 00:00:00 [place] [facility] HPV9 2016-07-21 Completed University of 00:00:00 [place] [facility] HPV9 2016-07-21 Completed University of 00:00:00 [place] [facility] HPV9 2016-07-21 Completed University of 00:00:00 [place] [facility] HPV9 2016-07-21 Completed University of 00:00:00 [place] [facility] HPV9 2016-07-21 Completed University of 00:00:00 [place] [facility] HPV9 2016-07-21 Completed University of 00:00:00 [place] [facility] HPV9 2016-07-21 Completed University of 00:00:00 [place] [facility] HPV9 2016-07-21 Completed University of 00:00:00 [place] [facility] HPV9 2016-07-21 Completed University of 00:00:00 [place] [facility] HPV9 2016-07-21 Completed University of 00:00:00 [place] [facility] HPV9 2016-07-21 Completed University of 00:00:00 [place] [facility] HPV9 2016-07-21 Completed University of 00:00:00 [place] [facility] HPV9 2016-07-21 Completed University of 00:00:00 [place] [facility] HPV9 2016-07-21 Completed University of 00:00:00 [place] [facility] HPV9 2016-07-21 Completed University of 00:00:00 [place] [facility] HPV9 2016-07-21 Completed University of 00:00:00 [place] [facility] HPV9 2016-07-21 Completed University of 00:00:00 [place] [facility] HPV9 2016-07-21 Completed University of 00:00:00 [place] [facility] HPV9 2016-07-21 Completed University of 00:00:00 [place] [facility] HPV9 2016-07-21 Completed University of 00:00:00 [place] [facility] HPV9 2016-07-21 Completed University of 00:00:00 [place] [facility] HPV9 2016-07-21 Completed University of 00:00:00 [place] [facility] HPV9 2016-07-21 Completed University of 00:00:00 [place] [facility] HPV9 2016-07-21 Completed University of 00:00:00 [place] [facility] HPV9 2016-07-21 Completed University of 00:00:00 [place] [facility] HPV9 2016-07-21 Completed University of 00:00:00 [place] [facility] HPV9 2016-07-21 Completed University of 00:00:00 [place] [facility] HPV9 2016-07-21 Completed University of 00:00:00 [place] [facility] HPV9 2016-07-21 Completed University of 00:00:00 [place] [facility] HPV9 2016-07-21 Completed University of 00:00:00 [place] [facility] HPV 2014-08-07 Completed University of 00:00:00 [place] [facility] HPV 2014-08-07 Completed University of 00:00:00 [place] [facility] HPV 2014-08-07 Completed University of 00:00:00 [place] [facility] HPV 2014-08-07 Completed [facility] of 00:00:00 [place] [facility] HPV 2014-08-07 Completed [facility] of 00:00:00 [place] [facility] HPV 2014-08-07 Completed [facility] of 00:00:00 [place] [facility] HPV 2014-08-07 Completed [facility] of 00:00:00 [place] [facility] HPV 2014-08-07 Completed [facility] of 00:00:00 [place] [facility] HPV 2014-08-07 Completed [facility] of 00:00:00 [place] [facility] HPV 2014-08-07 Completed [facility] of 00:00:00 [place] [facility] HPV 2014-08-07 Completed [facility] of 00:00:00 [place] [facility] HPV 2014-08-07 Completed [facility] of 00:00:00 [place] [facility] HPV 2014-08-07 Completed University of 00:00:00 [place] [facility] HPV 2014-08-07 Completed [facility] of 00:00:00 [place] [facility] HPV 2014-08-07 Completed [facility] of 00:00:00 [place] [facility] HPV 2014-08-07 Completed University of 00:00:00 [place] [facility] HPV 2014-08-07 Completed [facility] of 00:00:00 [place] [facility] HPV 2014-08-07 Completed [facility] of 00:00:00 [place] [facility] HPV 2014-08-07 Completed University of 00:00:00 [place] [facility] HPV 2014-08-07 Completed [facility] of 00:00:00 [place] [facility] HPV 2014-08-07 Completed University of 00:00:00 [place] [facility] HPV 2014-08-07 Completed University of 00:00:00 [place] [facility] HPV 2014-08-07 Completed [facility] of 00:00:00 [place] [facility] HPV 2014-08-07 Completed University of 00:00:00 [place] [facility] HPV 2014-08-07 Completed University of 00:00:00 [place] [facility] HPV 2014-08-07 Completed [facility] of 00:00:00 [place] [facility] HPV 2014-08-07 Completed [facility] of 00:00:00 [place] [facility] HPV 2014-08-07 Completed [facility] of 00:00:00 [place] [facility] HPV 2014-08-07 Completed [facility] of 00:00:00 [place] [facility] HPV 2014-08-07 Completed [facility] of 00:00:00 [place] [facility] HPV 2014-08-07 Completed University of 00:00:00 [facility] HPV 2014-08-07 Completed University of 00:00:00 [facility] Meningococcal 2013-07-30 Completed University of Polysaccharide 00:00:00 [place] [facility] (groups A, C, Y and Branc h W-135) conjugate vaccine (MCV4P) TDAP (ADACEL) VACCINE 2013-07-30 Completed Uni versity of 00:00:00 [facility] Branch HPV 2013-07-30 Completed University of 00:00:00 [facility] Meningococcal 2013-07-30 Completed University of Polysaccharide 00:00:00 [place] [facility] (groups A, C, Y and Branc h W-135) conjugate vaccine (MCV4P) TDAP (ADACEL) VACCINE 2013-07-30 Completed Uni versity of 00:00:00 [facility] Branch HPV 2013-07-30 Completed University of 00:00:00 [facility] Meningococcal 2013-07-30 Completed University of Polysaccharide 00:00:00 [place] [facility] (groups A, C, Y and Branc h W-135) conjugate vaccine (MCV4P) TDAP (ADACEL) VACCINE 2013-07-30 Completed Uni versity of 00:00:00 [facility] HPV 2013-07-30 Completed University of 00:00:00 [facility] Meningococcal 2013-07-30 Completed [facility] of Polysaccharide 00:00:00 [place] [facility] (groups A, C, Y and Branc h W-135) conjugate vaccine (MCV4P) TDAP (ADACEL) VACCINE 2013-07-30 Completed Uni versity of 00:00:00 [facility] HPV 2013-07-30 Completed University of 00:00:00 [facility] Meningococcal 2013-07-30 Completed [facility] of Polysaccharide 00:00:00 [place] [facility] (groups A, C, Y and Branc h W-135) conjugate vaccine (MCV4P) TDAP (ADACEL) VACCINE 2013-07-30 Completed Uni versity of 00:00:00 [facility] TDAP (ADACEL) VACCINE 2013-07-30 Completed Uni versity of 00:00:00 [facility] HPV 2013-07-30 Completed University of 00:00:00 [facility] Meningococcal 2013-07-30 Completed University of Polysaccharide 00:00:00 [place] [facility] (groups A, C, Y and Branc h W-135) conjugate vaccine (MCV4P) TDAP (ADACEL) VACCINE 2013-07-30 Completed Uni versity of 00:00:00 [facility] HPV 2013-07-30 Completed University of 00:00:00 [facility] Meningococcal 2013-07-30 Completed University of Polysaccharide 00:00:00 [place] [facility] (groups A, C, Y and Branc h W-135) conjugate vaccine (MCV4P) TDAP (ADACEL) VACCINE 2013-07-30 Completed Uni versity of 00:00:00 [facility] HPV 2013-07-30 Completed [facility] 00:00:00 [facility] Meningococcal 2013-07-30 Completed [facility] Polysaccharide 00:00:00 [facility] (groups A, C, Y and Branc h W-135) conjugate vaccine (MCV4P) TDAP (ADACEL) VACCINE 2013-07-30 Completed [facility] versity of 00:00:00 [facility] HPV 2013-07-30 Completed [facility] 00:00:00 [facility] Meningococcal 2013-07-30 Completed [facility] Polysaccharide 00:00:00 [facility] (groups A, C, Y and Branc h W-135) conjugate vaccine (MCV4P) TDAP (ADACEL) VACCINE 2013-07-30 Completed [facility] vers[facility] 00:00:00 [facility] HPV 2013-07-30 Completed [facility] 00:00:00 [facility] Meningococcal 2013-07-30 Completed [facility] Polysaccharide 00:00:00 [facility] (groups A, C, Y and Branc h W-135) conjugate vaccine (MCV4P) TDAP (ADACEL) VACCINE 2013-07-30 Completed [facility] vers[facility] of 00:00:00 [facility] HPV 2013-07-30 Completed [facility] 00:00:00 [facility] Meningococcal 2013-07-30 Completed [facility] Polysaccharide 00:00:00 [facility] (groups A, C, Y and Branc h W-135) conjugate vaccine (MCV4P) TDAP (ADACEL) VACCINE 2013-07-30 Completed [facility] vers[facility] of 00:00:00 [facility] HPV 2013-07-30 Completed [facility] 00:00:00 [facility] Meningococcal 2013-07-30 Completed [facility] Polysaccharide 00:00:00 [facility] (groups A, C, Y and Branc h W-135) conjugate vaccine (MCV4P) HPV 2013-07-30 Completed [facility] 00:00:00 [facility] TDAP (ADACEL) VACCINE 2013-07-30 Completed Uni versity of 00:00:00 [facility] Meningococcal 2013-07-30 Completed [facility] Polysaccharide 00:00:00 [facility] (groups A, C, Y and Branc h W-135) conjugate vaccine (MCV4P) HPV 2013-07-30 Completed [facility] 00:00:00 [facility] Meningococcal 2013-07-30 Completed [facility] Polysaccharide 00:00:00 [facility] (groups A, C, Y and Branc h W-135) conjugate vaccine (MCV4P) TDAP (ADACEL) VACCINE 2013-07-30 Completed [facility] vers[facility] of 00:00:00 [facility] HPV 2013-07-30 Completed [facility] 00:00:00 [facility] Meningococcal 2013-07-30 Completed [facility] Polysaccharide 00:00:00 [facility] (groups A, C, Y and Branc h W-135) conjugate vaccine (MCV4P) TDAP (ADACEL) VACCINE 2013-07-30 Completed [facility] vers[facility] of 00:00:00 [facility] HPV 2013-07-30 Completed [facility] 00:00:00 [facility] Meningococcal 2013-07-30 Completed [facility] Polysaccharide 00:00:00 [facility] (groups A, C, Y and Branc h W-135) conjugate vaccine (MCV4P) TDAP (ADACEL) VACCINE 2013-07-30 Completed [facility] versity of 00:00:00 [facility] HPV 2013-07-30 Completed [facility] 00:00:00 [facility] Meningococcal 2013-07-30 Completed [facility] Polysaccharide 00:00:00 [facility] (groups A, C, Y and Branc h W-135) conjugate vaccine (MCV4P) TDAP (ADACEL) VACCINE 2013-07-30 Completed [facility] versity of 00:00:00 [facility] HPV 2013-07-30 Completed [facility] 00:00:00 [facility] Meningococcal 2013-07-30 Completed [facility] Polysaccharide 00:00:00 [facility] (groups A, C, Y and Branc h W-135) conjugate vaccine (MCV4P) TDAP (ADACEL) VACCINE 2013-07-30 Completed [facility] 00:00:00 [facility] TDAP (ADACEL) VACCINE 2013-07-30 Completed [facility] versity of 00:00:00 [facility] HPV 2013-07-30 Completed [facility] 00:00:00 [facility] Meningococcal 2013-07-30 Completed [facility] Polysaccharide 00:00:00 [facility] (groups A, C, Y and Branc h W-135) conjugate vaccine (MCV4P) TDAP (ADACEL) VACCINE 2013-07-30 Completed [facility] vers[facility] of 00:00:00 [facility] HPV 2013-07-30 Completed [facility] 00:00:00 [facility] Meningococcal 2013-07-30 Completed [facility] Polysaccharide 00:00:00 [facility] (groups A, C, Y and Branc h W-135) conjugate vaccine (MCV4P) TDAP (ADACEL) VACCINE 2013-07-30 Completed [facility] versity of 00:00:00 [facility] HPV 2013-07-30 Completed [facility] 00:00:00 [facility] Meningococcal 2013-07-30 Completed [facility] Polysaccharide 00:00:00 [facility] (groups A, C, Y and Branc h W-135) conjugate vaccine (MCV4P) HPV 2013-07-30 Completed [facility] 00:00:00 [facility] TDAP (ADACEL) VACCINE 2013-07-30 Completed Uni versity of 00:00:00 [facility] HPV 2013-07-30 Completed [facility] 00:00:00 [facility] Meningococcal 2013-07-30 Completed [facility] Polysaccharide 00:00:00 [facility] (groups A, C, Y and Branc h W-135) conjugate vaccine (MCV4P) Meningococcal 2013-07-30 Completed [facility] Polysaccharide 00:00:00 [facility] (groups A, C, Y and Branc h W-135) conjugate vaccine (MCV4P) TDAP (ADACEL) VACCINE 2013-07-30 Completed [facility] versity of 00:00:00 [facility] HPV 2013-07-30 Completed [facility] 00:00:00 [facility] Meningococcal 2013-07-30 Completed [facility] Polysaccharide 00:00:00 [facility] (groups A, C, Y and Branc h W-135) conjugate vaccine (MCV4P) TDAP (ADACEL) VACCINE 2013-07-30 Completed [facility] versity of 00:00:00 [facility] HPV 2013-07-30 Completed [facility] 00:00:00 [facility] Meningococcal 2013-07-30 Completed [facility] Polysaccharide 00:00:00 [facility] (groups A, C, Y and Branc h W-135) conjugate vaccine (MCV4P) TDAP (ADACEL) VACCINE 2013-07-30 Completed [facility] vers[facility] of 00:00:00 [facility] HPV 2013-07-30 Completed [facility] 00:00:00 [facility] Meningococcal 2013-07-30 Completed [facility] Polysaccharide 00:00:00 [facility] (groups A, C, Y and Branc h W-135) conjugate vaccine (MCV4P) TDAP (ADACEL) VACCINE 2013-07-30 Completed [facility] versity of 00:00:00 [facility] HPV 2013-07-30 Completed [facility] 00:00:00 [facility] Meningococcal 2013-07-30 Completed [facility] Polysaccharide 00:00:00 [facility] (groups A, C, Y and Branc h W-135) conjugate vaccine (MCV4P) TDAP (ADACEL) VACCINE 2013-07-30 Completed [facility] versity of 00:00:00 [facility] HPV 2013-07-30 Completed [facility] 00:00:00 [facility] Meningococcal 2013-07-30 Completed [facility] Polysaccharide 00:00:00 [facility] (groups A, C, Y and Branc h W-135) conjugate vaccine (MCV4P) TDAP (ADACEL) VACCINE 2013-07-30 Completed [facility] vers[facility] of 00:00:00 [facility] TDAP (ADACEL) VACCINE 2013-07-30 Completed Uni versity of 00:00:00 [facility] HPV 2013-07-30 Completed [facility] 00:00:00 [facility] Meningococcal 2013-07-30 Completed [facility] Polysaccharide 00:00:00 [facility] (groups A, C, Y and Branc h W-135) conjugate vaccine (MCV4P) TDAP (ADACEL) VACCINE 2013-07-30 Completed [facility] versity of 00:00:00 [facility] HPV 2013-07-30 Completed [facility] 00:00:00 [facility] Meningococcal 2013-07-30 Completed [facility] Polysaccharide 00:00:00 [facility] (groups A, C, Y and Branc h W-135) conjugate vaccine (MCV4P) TDAP (ADACEL) VACCINE 2013-07-30 Completed [facility] versity of 00:00:00 [facility] HPV 2013-07-30 Completed [facility] of 00:00:00 [facility] Meningococcal 2013-07-30 Completed [facility] Polysaccharide 00:00:00 [facility] (groups A, C, Y and Branc h W-135) conjugate vaccine (MCV4P) TDAP (ADACEL) VACCINE 2013-07-30 Completed [facility] versity of 00:00:00 [facility] HPV 2013-07-30 Completed [facility] 00:00:00 [facility] HPV 2013-07-30 Completed [facility] of 00:00:00 [facility] Meningococcal 2013-07-30 Completed [facility] Polysaccharide 00:00:00 [facility] (groups A, C, Y and Branc h W-135) conjugate vaccine (MCV4P) HEPATITIS A 2005-11-29 Completed [facility] of 00:00:00 [facility] HEPATITIS A 2005-11-29 Completed [facility] of 00:00:00 [facility] HEPATITIS A 2005-11-29 Completed [facility] of 00:00:00 [facility] HEPATITIS A 2005-11-29 Completed [facility] of 00:00:00 [facility] HEPATITIS A 2005-11-29 Completed [facility] of 00:00:00 [facility] HEPATITIS A 2005-11-29 Completed [facility] of 00:00:00 [facility] HEPATITIS A 2005-11-29 Completed [facility] of 00:00:00 [facility] HEPATITIS A 2005-11-29 Completed [facility] of 00:00:00 [facility] HEPATITIS A 2005-11-29 Completed [facility] of 00:00:00 [facility] HEPATITIS A 2005-11-29 Completed [facility] of 00:00:00 [facility] HEPATITIS A 2005-11-29 Completed [facility] 00:00:00 [facility] HEPATITIS A 2005-11-29 Completed [facility] of 00:00:00 [facility] HEPATITIS A 2005-11-29 Completed [facility] of 00:00:00 [facility] HEPATITIS A 2005-11-29 Completed [facility] of 00:00:00 [facility] HEPATITIS A 2005-11-29 Completed [facility] 00:00:00 [facility] HEPATITIS A 2005-11-29 Completed [facility] of 00:00:00 [facility] HEPATITIS A 2005-11-29 Completed [facility] of 00:00:00 [facility] HEPATITIS A 2005-11-29 Completed [facility] 00:00:00 [facility] HEPATITIS A 2005-11-29 Completed [facility] 00:00:00 [facility] HEPATITIS A 2005-11-29 Completed [facility] of 00:00:00 [facility] HEPATITIS A 2005-11-29 Completed [facility] of 00:00:00 [facility] HEPATITIS A 2005-11-29 Completed [facility] of 00:00:00 [facility] HEPATITIS A 2005-11-29 Completed [facility] 00:00:00 [facility] HEPATITIS A 2005-11-29 Completed [facility] of 00:00:00 [facility] HEPATITIS A 2005-11-29 Completed [facility] 00:00:00 [facility] HEPATITIS A 2005-11-29 Completed [facility] of 00:00:00 [facility] HEPATITIS A 2005-11-29 Completed [facility] of 00:00:00 [facility] HEPATITIS A 2005-11-29 Completed [facility] of 00:00:00 [facility] HEPATITIS A 2005-11-29 Completed [facility] of 00:00:00 [facility] HEPATITIS A 2005-11-29 Completed [facility] of 00:00:00 [facility] HEPATITIS A 2005-11-29 Completed [facility] of 00:00:00 [facility] HEPATITIS A 2005-11-29 Completed [facility] of 00:00:00 [facility] DTAP 2005-07-21 Completed [facility] of 00:00:00 [facility] MMR 2005-07-21 Completed [facility] 00:00:00 [facility] MMR 2005-07-21 Completed [facility] of 00:00:00 [facility] Polio (IPV/OPV) 2005-07-21 Completed Universit y of 00:00:00 [facility] Varicella 2005-07-21 Completed University of (varivax)(chicken 00:00:00 [facility] pox) [facility] Pneumococcal 7 2005-07-21 Completed [facility] of Conjugate, PCV7 00:00:00 [facility] ical (Prevnar7) Branch DTAP 2005-07-21 Completed [facility] of 00:00:00 [facility] Polio (IPV/OPV) 2005-07-21 Completed Universit y of 00:00:00 [facility] MMR 2005-07-21 Completed [facility] of 00:00:00 [facility] Polio (IPV/OPV) 2005-07-21 Completed Universit y of 00:00:00 [facility] Varicella 2005-07-21 Completed [facility] of (varivax)(chicken 00:00:00 [facility] pox) [facility] Varicella 2005-07-21 Completed [facility] (varivax)(chicken 00:00:00 [facility] pox) [facility] Pneumococcal 7 2005-07-21 Completed [facility] Conjugate, PCV7 00:00:00 [facility] (Prevnar7) [facility] DTAP 2005-07-21 Completed [facility] 00:00:00 [facility] Pneumococcal 7 2005-07-21 Completed [facility] of Conjugate, PCV7 00:00:00 [facility] (Prevnar7) [facility] MMR 2005-07-21 Completed [facility] of 00:00:00 [facility] Polio (IPV/OPV) 2005-07-21 Completed Universit y of 00:00:00 [facility] Varicella 2005-07-21 Completed [facility] of (varivax)(chicken 00:00:00 [facility] edical pox) Branch Pneumococcal 7 2005-07-21 Completed [facility] of Conjugate, PCV7 00:00:00 [facility] (Prevnar7) [facility] DTAP 2005-07-21 Completed [facility] of 00:00:00 [facility] MMR 2005-07-21 Completed [facility] of 00:00:00 [facility] Polio (IPV/OPV) 2005-07-21 Completed Universit y of 00:00:00 [facility] Varicella 2005-07-21 Completed [facility] of (varivax)(chicken 00:00:00 [facility] edical pox) Branch Pneumococcal 7 2005-07-21 Completed [facility] of Conjugate, PCV7 00:00:00 [facility] (Prevnar7) [facility] DTAP 2005-07-21 Completed [facility] of 00:00:00 [facility] MMR 2005-07-21 Completed [facility] of 00:00:00 [facility] Polio (IPV/OPV) 2005-07-21 Completed Universit y of 00:00:00 [facility] Varicella 2005-07-21 Completed [facility] of (varivax)(chicken 00:00:00 [facility] edical pox) Branch Pneumococcal 7 2005-07-21 Completed [facility] of Conjugate, PCV7 00:00:00 [facility] (Prevnar7) [facility] DTAP 2005-07-21 Completed [facility] 00:00:00 [facility] DTAP 2005-07-21 Completed [facility] of 00:00:00 [facility] MMR 2005-07-21 Completed [facility] of 00:00:00 [facility] Polio (IPV/OPV) 2005-07-21 Completed Universit y of 00:00:00 [facility] Varicella 2005-07-21 Completed [facility] (varivax)(chicken 00:00:00 [facility] Pneumococcal 7 2005-07-21 Completed [facility] Conjugate, PCV7 00:00:00 [facility] (Prevnar7) [facility] DTAP 2005-07-21 Completed [facility] of 00:00:00 [facility] MMR 2005-07-21 Completed [facility] of 00:00:00 [facility] Polio (IPV/OPV) 2005-07-21 Completed Universit y of 00:00:00 [facility] Varicella 2005-07-21 Completed [facility] (varivax)(chicken 00:00:00 [facility] Pneumococcal 7 2005-07-21 Completed [facility] Conjugate, PCV7 00:00:00 [facility] (Prevnar7) [facility] MMR 2005-07-21 Completed [facility] of 00:00:00 [facility] Polio (IPV/OPV) 2005-07-21 Completed Universit y of 00:00:00 [facility] Varicella 2005-07-21 Completed [facility] of (varivax)(chicken 00:00:00 [facility] edical pox) Branch Pneumococcal 7 2005-07-21 Completed [facility] of Conjugate, PCV7 00:00:00 [facility] (Prevnar7) [facility] DTAP 2005-07-21 Completed [facility] of 00:00:00 [facility] MMR 2005-07-21 Completed [facility] of 00:00:00 [facility] Polio (IPV/OPV) 2005-07-21 Completed Universit y of 00:00:00 [facility] Varicella 2005-07-21 Completed [facility] (varivax)(chicken 00:00:00 [facility] pox[facility] DTAP 2005-07-21 Completed [facility] 00:00:00 [facility] Pneumococcal 7 2005-07-21 Completed [facility] of Conjugate, PCV7 00:00:00 [facility] (Prevnar7) [facility] DTAP 2005-07-21 Completed [facility] of 00:00:00 [facility] MMR 2005-07-21 Completed [facility] of 00:00:00 [facility] Polio (IPV/OPV) 2005-07-21 Completed Universit y of 00:00:00 [facility] Varicella 2005-07-21 Completed [facility] (varivax)(chicken 00:00:00 [facility] Pneumococcal 7 2005-07-21 Completed [facility] Conjugate, PCV7 00:00:00 [facility] (Prevnar7) Branch DTAP 2005-07-21 Completed [facility] of 00:00:00 [facility] MMR 2005-07-21 Completed [facility] of 00:00:00 [facility] Polio (IPV/OPV) 2005-07-21 Completed Universit y of 00:00:00 [facility] Varicella 2005-07-21 Completed [facility] of (varivax)(chicken 00:00:00 [facility] edical pox) Branch Pneumococcal 7 2005-07-21 Completed [facility] of Conjugate, PCV7 00:00:00 [facility] (Prevnar7) Branch DTAP 2005-07-21 Completed [facility] of 00:00:00 [facility] MMR 2005-07-21 Completed [facility] of 00:00:00 [facility] Polio (IPV/OPV) 2005-07-21 Completed Universit y of 00:00:00 [facility] Varicella 2005-07-21 Completed [facility] of (varivax)(chicken 00:00:00 [facility] edical pox) Branch MMR 2005-07-21 Completed [facility] of 00:00:00 [facility] Pneumococcal 7 2005-07-21 Completed [facility] of Conjugate, PCV7 00:00:00 [facility] (Prevnar7) Branch DTAP 2005-07-21 Completed [facility] of 00:00:00 [facility] MMR 2005-07-21 Completed [facility] of 00:00:00 [facility] Polio (IPV/OPV) 2005-07-21 Completed Universit y of 00:00:00 [facility] Polio (IPV/OPV) 2005-07-21 Completed Universit y of 00:00:00 [facility] Varicella 2005-07-21 Completed [facility] (varivax)(chicken 00:00:00 [facility] Pneumococcal 7 2005-07-21 Completed [facility] Conjugate, PCV7 00:00:00 [facility] (Prevnar7) [facility] Varicella 2005-07-21 Completed [facility] of (varivax)(chicken 00:00:00 [facility] pox) [facility] DTAP 2005-07-21 Completed [facility] 00:00:00 [facility] MMR 2005-07-21 Completed [facility] of 00:00:00 [facility] Pneumococcal 7 2005-07-21 Completed [facility] Conjugate, PCV7 00:00:00 [facility] (Prevnar7) [facility] Polio (IPV/OPV) 2005-07-21 Completed Universit y of 00:00:00 [facility] Varicella 2005-07-21 Completed [facility] of (varivax)(chicken 00:00:00 [facility] edical pox) Branch Pneumococcal 7 2005-07-21 Completed [facility] of Conjugate, PCV7 00:00:00 [facility] (Prevnar7) [facility] DTAP 2005-07-21 Completed [facility] of 00:00:00 [facility] MMR 2005-07-21 Completed [facility] of 00:00:00 [facility] Polio (IPV/OPV) 2005-07-21 Completed Universit y of 00:00:00 [facility] Varicella 2005-07-21 Completed [facility] of (varivax)(chicken 00:00:00 [facility] edical pox) Branch Pneumococcal 7 2005-07-21 Completed [facility] Conjugate, PCV7 00:00:00 [facility] (Prevnar7) Branch DTAP 2005-07-21 Completed [facility] of 00:00:00 [facility] MMR 2005-07-21 Completed [facility] of 00:00:00 [facility] Polio (IPV/OPV) 2005-07-21 Completed Universit y of 00:00:00 [facility] Varicella 2005-07-21 Completed [facility] of (varivax)(chicken 00:00:00 [facility] edical pox) Branch Pneumococcal 7 2005-07-21 Completed [facility] of Conjugate, PCV7 00:00:00 [facility] (Prevnar7) Branch DTAP 2005-07-21 Completed [facility] of 00:00:00 [facility] MMR 2005-07-21 Completed [facility] of 00:00:00 [facility] Polio (IPV/OPV) 2005-07-21 Completed Universit y of 00:00:00 [facility] Varicella 2005-07-21 Completed [facility] of (varivax)(chicken 00:00:00 [facility] edical pox) Branch Pneumococcal 7 2005-07-21 Completed [facility] of Conjugate, PCV7 00:00:00 [facility] (Prevnar7) Branch DTAP 2005-07-21 Completed [facility] of 00:00:00 [facility] DTAP 2005-07-21 Completed [facility] of 00:00:00 [facility] MMR 2005-07-21 Completed [facility] of 00:00:00 [facility] Polio (IPV/OPV) 2005-07-21 Completed Universit y of 00:00:00 [facility] Varicella 2005-07-21 Completed [facility] of (varivax)(chicken 00:00:00 [facility] edical pox) Branch Pneumococcal 7 2005-07-21 Completed [facility] of Conjugate, PCV7 00:00:00 [facility] (Prevnar7) Branch DTAP 2005-07-21 Completed [facility] of 00:00:00 [facility] MMR 2005-07-21 Completed [facility] of 00:00:00 [facility] Polio (IPV/OPV) 2005-07-21 Completed Universit y of 00:00:00 [facility] Varicella 2005-07-21 Completed [facility] of (varivax)(chicken 00:00:00 [facility] edical pox) Branch Pneumococcal 7 2005-07-21 Completed [facility] of Conjugate, PCV7 00:00:00 [facility] (Prevnar7) Branch DTAP 2005-07-21 Completed [facility] of 00:00:00 [facility] MMR 2005-07-21 Completed [facility] of 00:00:00 [facility] Polio (IPV/OPV) 2005-07-21 Completed Universit y of 00:00:00 [facility] Varicella 2005-07-21 Completed [facility] of (varivax)(chicken 00:00:00 [facility] edical pox) Branch Pneumococcal 7 2005-07-21 Completed [facility] of Conjugate, PCV7 00:00:00 [facility] (Prevnar7) [facility] MMR 2005-07-21 Completed [facility] of 00:00:00 [facility] DTAP 2005-07-21 Completed [facility] of 00:00:00 [facility] MMR 2005-07-21 Completed [facility] of 00:00:00 [facility] Polio (IPV/OPV) 2005-07-21 Completed Universit [facility] of 00:00:00 [facility] Varicella 2005-07-21 Completed [facility] of (varivax)(chicken 00:00:00 [facility] edical pox) Branch Pneumococcal 7 2005-07-21 Completed [facility] of Conjugate, PCV7 00:00:00 [facility] (Prevnar7) [facility] Polio (IPV/OPV) 2005-07-21 Completed Universit y [facility] 00:00:00 [facility] Varicella 2005-07-21 Completed [facility] (varivax)(chicken 00:00:00 [facility]ox) [facility] DTAP 2005-07-21 Completed [facility] of 00:00:00 [facility] MMR 2005-07-21 Completed [facility] of 00:00:00 [facility] Polio (IPV/OPV) 2005-07-21 Completed [facility]it [facility] 00:00:00 [facility] Varicella 2005-07-21 Completed [facility] (varivax)(chicken 00:00:00 [facility] pox) [facility] Pneumococcal 7 2005-07-21 Completed [facility] Conjugate, PCV7 00:00:00 [facility] (Prevnar7) [facility] Pneumococcal 7 2005-07-21 Completed [facility] Conjugate, PCV7 00:00:00 [facility] (Prevnar7) Branch DTAP 2005-07-21 Completed [facility] of 00:00:00 [facility] MMR 2005-07-21 Completed [facility] of 00:00:00 [facility] Polio (IPV/OPV) 2005-07-21 Completed [facility]it [facility] 00:00:00 [facility] Varicella 2005-07-21 Completed [facility] of (varivax)(chicken 00:00:00 [facility] edical pox) Branch Pneumococcal 7 2005-07-21 Completed [facility] of Conjugate, PCV7 00:00:00 [facility] (Prevnar7) Branch DTAP 2005-07-21 Completed [facility] of 00:00:00 [facility] MMR 2005-07-21 Completed [facility] of 00:00:00 [facility] Polio (IPV/OPV) 2005-07-21 Completed [facility]it [facility] of 00:00:00 [facility] Varicella 2005-07-21 Completed [facility] of (varivax)(chicken 00:00:00 [facility] edical pox) Branch Pneumococcal 7 2005-07-21 Completed [facility] of Conjugate, PCV7 00:00:00 [facility] (Prevnar7) Branch DTAP 2005-07-21 Completed [facility] of 00:00:00 [facility] MMR 2005-07-21 Completed [facility] of 00:00:00 [facility] Polio (IPV/OPV) 2005-07-21 Completed [facility]it [facility] 00:00:00 [facility] Varicella 2005-07-21 Completed [facility] of (varivax)(chicken 00:00:00 [facility] edical pox) Branch Pneumococcal 7 2005-07-21 Completed [facility] of Conjugate, PCV7 00:00:00 [facility] (Prevnar7) Branch DTAP 2005-07-21 Completed [facility] of 00:00:00 [facility] MMR 2005-07-21 Completed [facility] of 00:00:00 [facility] Polio (IPV/OPV) 2005-07-21 Completed [facility]it [facility] 00:00:00 [facility] Varicella 2005-07-21 Completed [facility] (varivax)(chicken 00:00:00 [facility] pox) [facility] Pneumococcal 7 2005-07-21 Completed [facility] Conjugate, PCV7 00:00:00 [facility] (Prevnar7) Branch DTAP 2005-07-21 Completed [facility] of 00:00:00 [facility] DTAP 2005-07-21 Completed [facility] of 00:00:00 [facility] MMR 2005-07-21 Completed [facility] of 00:00:00 [facility] Polio (IPV/OPV) 2005-07-21 Completed Universit [facility] 00:00:00 [facility] Varicella 2005-07-21 Completed [facility] of (varivax)(chicken 00:00:00 [facility] edical pox) Branch Pneumococcal 7 2005-07-21 Completed [facility] of Conjugate, PCV7 00:00:00 [facility] (Prevnar7) Branch DTAP 2005-07-21 Completed [facility] of 00:00:00 [facility] MMR 2005-07-21 Completed [facility] of 00:00:00 [facility] Polio (IPV/OPV) 2005-07-21 Completed [facility]00 [facility] Varicella 2005-07-21 Completed [facility] (varivax)(chicken 00:00:00 [facility] pox) [facility] Pneumococcal 7 2005-07-21 Completed [facility] Conjugate, PCV7 00:00:00 [facility] (Prevnar7) [facility] DTAP 2005-07-21 Completed [facility] 00:00:00 [facility] MMR 2005-07-21 Completed [facility] 00:00:00 [facility] Polio (IPV/OPV) 2005-07-21 Completed [facility] 00:00:00 [facility] Varicella 2005-07-21 Completed [facility] (varivax)(chicken 00:00:00 [facility] pox) [facility] Pneumococcal 7 2005-07-21 Completed [facility] Conjugate, PCV7 00:00:00 [facility] (Prevnar7) [facility] DTAP 2003-01-17 Completed [facility] 00:00:00 [facility] Pneumococcal 7 2003-01-17 Completed [facility] Conjugate, PCV7 00:00:00 [facility] (Prevnar7) [facility] DTAP 2003-01-17 Completed [facility] 00:00:00 [facility] Pneumococcal 7 2003-01-17 Completed [facility] Conjugate, PCV7 00:00:00 [facility] (Prevnar7) [facility] DTAP 2003-01-17 Completed [facility] 00:00:00 [facility] Pneumococcal 7 2003-01-17 Completed [facility] Conjugate, PCV7 00:00:00 [facility] (Prevnar7) [facility] Pneumococcal 7 2003-01-17 Completed [facility] Conjugate, PCV7 00:00:00 [facility] (Prevnar7) [facility] DTAP 2003-01-17 Completed [facility] 00:00:00 [facility] Pneumococcal 7 2003-01-17 Completed [facility] Conjugate, PCV7 00:00:00 [facility] (Prevnar7) [facility] DTAP 2003-01-17 Completed [facility] 00:00:00 [facility] Pneumococcal 7 2003-01-17 Completed [facility] Conjugate, PCV7 00:00:00 [facility] (Prevnar7) [facility] DTAP 2003-01-17 Completed [facility] 00:00:00 [facility] DTAP 2003-01-17 Completed [facility] 00:00:00 [facility] Pneumococcal 7 2003-01-17 Completed [facility] Conjugate, PCV7 00:00:00 [facility] (Prevnar7) [facility] DTAP 2003-01-17 Completed [facility] 00:00:00 [facility] Pneumococcal 7 2003-01-17 Completed [facility] Conjugate, PCV7 00:00:00 [facility] (Prevnar7) [facility] Pneumococcal 7 2003-01-17 Completed [facility] Conjugate, PCV7 00:00:00 [facility] (Prevnar7) [facility] DTAP 2003-01-17 Completed [facility] 00:00:00 [facility] DTAP 2003-01-17 Completed [facility] 00:00:00 [facility] Pneumococcal 7 2003-01-17 Completed [facility] Conjugate, PCV7 00:00:00 [facility] (Prevnar7) [facility] DTAP 2003-01-17 Completed [facility] 00:00:00 [facility] Pneumococcal 7 2003-01-17 Completed [facility] Conjugate, PCV7 00:00:00 [facility] (Prevnar7) [facility] DTAP 2003-01-17 Completed [facility] 00:00:00 [facility] Pneumococcal 7 2003-01-17 Completed [facility] Conjugate, PCV7 00:00:00 [facility] (Prevnar7) [facility] DTAP 2003-01-17 Completed [facility] 00:00:00 [facility] Pneumococcal 7 2003-01-17 Completed [facility] Conjugate, PCV7 00:00:00 [facility] (Prevnar7) [facility] DTAP 2003-01-17 Completed [facility] 00:00:00 [facility] Pneumococcal 7 2003-01-17 Completed [facility] Conjugate, PCV7 00:00:00 [facility] (Prevnar7) [facility] DTAP 2003-01-17 Completed [facility] 00:00:00 [facility] Pneumococcal 7 2003-01-17 Completed [facility] Conjugate, PCV7 00:00:00 [facility] (Prevnar7) [facility] Pneumococcal 7 2003-01-17 Completed [facility] Conjugate, PCV7 00:00:00 [facility] (Prevnar7) [facility] DTAP 2003-01-17 Completed [facility] 00:00:00 [facility] Pneumococcal 7 2003-01-17 Completed [facility] Conjugate, PCV7 00:00:00 [facility] (Prevnar7) [facility] DTAP 2003-01-17 Completed [facility] 00:00:00 [facility] Pneumococcal 7 2003-01-17 Completed [facility] Conjugate, PCV7 00:00:00 [facility] (Prevnar7) [facility] DTAP 2003-01-17 Completed [facility] 00:00:00 [facility] DTAP 2003-01-17 Completed [facility] 00:00:00 [facility] Pneumococcal 7 2003-01-17 Completed [facility] Conjugate, PCV7 00:00:00 [facility] (Prevnar7) [facility] DTAP 2003-01-17 Completed [facility] 00:00:00 [facility] Pneumococcal 7 2003-01-17 Completed [facility] Conjugate, PCV7 00:00:00 [facility] (Prevnar7) [facility] DTAP 2003-01-17 Completed [facility] 00:00:00 [facility] Pneumococcal 7 2003-01-17 Completed [facility] Conjugate, PCV7 00:00:00 [facility] (Prevnar7) [facility] DTAP 2003-01-17 Completed [facility] 00:00:00 [facility] Pneumococcal 7 2003-01-17 Completed [facility] Conjugate, PCV7 00:00:00 [facility] (Prevnar7) [facility] DTAP 2003-01-17 Completed [facility] 00:00:00 [facility] Pneumococcal 7 2003-01-17 Completed [facility] Conjugate, PCV7 00:00:00 [facility] (Prevnar7) [facility] DTAP 2003-01-17 Completed [facility] 00:00:00 [facility] Pneumococcal 7 2003-01-17 Completed [facility] Conjugate, PCV7 00:00:00 [facility] (Prevnar7) [facility] Pneumococcal 7 2003-01-17 Completed [facility] Conjugate, PCV7 00:00:00 [facility] (Prevnar7) [facility] DTAP 2003-01-17 Completed [facility] 00:00:00 [facility] Pneumococcal 7 2003-01-17 Completed [facility] Conjugate, PCV7 00:00:00 [facility] (Prevnar7) [facility] DTAP 2003-01-17 Completed [facility] 00:00:00 [facility] Pneumococcal 7 2003-01-17 Completed [facility] Conjugate, PCV7 00:00:00 [facility] (Prevnar7) [facility] DTAP 2003-01-17 Completed [facility] 00:00:00 [facility] Pneumococcal 7 2003-01-17 Completed [facility] Conjugate, PCV7 00:00:00 [facility] (Prevnar7) [facility] DTAP 2003-01-17 Completed [facility] 00:00:00 [facility] Pneumococcal 7 2003-01-17 Completed [facility] Conjugate, PCV7 00:00:00 [facility] (Prevnar7) [facility] DTAP 2003-01-17 Completed [facility] 00:00:00 [facility] DTAP 2003-01-17 Completed [facility] 00:00:00 [facility] Pneumococcal 7 2003-01-17 Completed [facility] Conjugate, PCV7 00:00:00 [facility] (Prevnar7) [facility] DTAP 2003-01-17 Completed [facility] 00:00:00 [facility] Pneumococcal 7 2003-01-17 Completed [facility] Conjugate, PCV7 00:00:00 [facility] (Prevnar7) [facility] DTAP 2003-01-17 Completed [facility] of 00:00:00 [facility] Pneumococcal 7 2003-01-17 Completed [facility] of Conjugate, PCV7 00:00:00 [facility] ical (Prevnar7) Branch MMR 2002-07-26 Completed [facility] of 00:00:00 [facility] HIB 4 Dose Schedule 2002-07-26 Completed [facility]ive rs[facility] of 00:00:00 [facility] MMR 2002-07-26 Completed [facility] of 00:00:00 [facility] Polio (IPV/OPV) 2002-07-26 Completed [facility] 00:00:00 [facility] Polio (IPV/OPV) 2002-07-26 Completed [facility] 00:00:00 [facility] Varicella 2002-07-26 Completed [facility] (varivax)(chicken 00:00:00 [facility] pox[facility] HIB 4 Dose Schedule 2002-07-26 Completed [facility]ive [facility] 00:00:00 [facility] Varicella 2002-07-26 Completed [facility] (varivax)(chicken 00:00:00 [facility] pox) [facility] MMR 2002-07-26 Completed [facility] 00:00:00 [facility] Polio (IPV/OPV) 2002-07-26 Completed [facility] 00:00:00 [facility] Varicella 2002-07-26 Completed [facility] (varivax)(chicken 00:00:00 [facility] pox[facility] HIB 4 Dose Schedule 2002-07-26 Completed [facility] of 00:00:00 [facility] MMR 2002-07-26 Completed [facility] 00:00:00 [facility] Polio (IPV/OPV) 2002-07-26 Completed [facility] 00:00:00 [facility] Varicella 2002-07-26 Completed [facility] (varivax)(chicken 00:00:00 [facility] p[facility] HIB 4 Dose Schedule 2002-07-26 Completed [facility] 00:00:00 [facility] MMR 2002-07-26 Completed [facility] 00:00:00 [facility] Polio (IPV/OPV) 2002-07-26 Completed [facility] 00:00:00 [facility] Varicella 2002-07-26 Completed [facility] (varivax)(chicken 00:00:00 [facility] pox) [facility] HIB 4 Dose Schedule 2002-07-26 Completed [facility] of 00:00:00 [facility] MMR 2002-07-26 Completed [facility] 00:00:00 [facility] Polio (IPV/OPV) 2002-07-26 Completed [facility] 00:00:00 [facility] Varicella 2002-07-26 Completed [facility] (varivax)(chicken 00:00:00 [facility] pox) [facility] HIB 4 Dose Schedule 2002-07-26 Completed [facility] rs[facility] of 00:00:00 [facility] MMR 2002-07-26 Completed [facility] 00:00:00 [facility] Polio (IPV/OPV) 2002-07-26 Completed [facility] 00:00:00 [facility] Varicella 2002-07-26 Completed [facility] (varivax)(chicken 00:00:00 [facility] pox) [facility] HIB 4 Dose Schedule 2002-07-26 Completed [facility] of 00:00:00 [facility] HIB 4 Dose Schedule 2002-07-26 Completed [facility] of 00:00:00 [facility] MMR 2002-07-26 Completed [facility] 00:00:00 [facility] Polio (IPV/OPV) 2002-07-26 Completed [facility] 00:00:00 [facility] Varicella 2002-07-26 Completed [facility] (varivax)(chicken 00:00:00 [facility] pox) [facility] HIB 4 Dose Schedule 2002-07-26 Completed [facility] of 00:00:00 [facility] MMR 2002-07-26 Completed [facility] 00:00:00 [facility] Polio (IPV/OPV) 2002-07-26 Completed [facility] 00:00:00 [facility] Varicella 2002-07-26 Completed [facility] (varivax)(chicken 00:00:00 [facility] pox) [facility] HIB 4 Dose Schedule 2002-07-26 Completed [facility] of 00:00:00 [facility] MMR 2002-07-26 Completed [facility] 00:00:00 [facility] Polio (IPV/OPV) 2002-07-26 Completed [facility] 00:00:00 [facility] Varicella 2002-07-26 Completed [facility] (varivax)(chicken 00:00:00 [facility] pox) [facility] MMR 2002-07-26 Completed [facility] 00:00:00 [facility] HIB 4 Dose Schedule 2002-07-26 Completed [facility] of 00:00:00 [facility] MMR 2002-07-26 Completed [facility] 00:00:00 [facility] Polio (IPV/OPV) 2002-07-26 Completed [facility] 00:00:00 [facility] Varicella 2002-07-26 Completed [facility] (varivax)(chicken 00:00:00 [facility] pox[facility] Polio (IPV/OPV) 2002-07-26 Completed [facility] 00:00:00 [facility] HIB 4 Dose Schedule 2002-07-26 Completed [facility]ive rs[facility] of 00:00:00 [facility] MMR 2002-07-26 Completed [facility] 00:00:00 [facility] Polio (IPV/OPV) 2002-07-26 Completed [facility] 00:00:00 [facility] Varicella 2002-07-26 Completed [facility] (varivax)(chicken 00:00:00 [facility] pox[facility] Varicella 2002-07-26 Completed [facility] (varivax)(chicken 00:00:00 [facility] pox) [facility] HIB 4 Dose Schedule 2002-07-26 Completed [facility] 00:00:00 [facility] MMR 2002-07-26 Completed [facility] 00:00:00 [facility] Polio (IPV/OPV) 2002-07-26 Completed [facility] 00:00:00 [facility] Varicella 2002-07-26 Completed [facility] (varivax)(chicken 00:00:00 [facility] pox) [facility] HIB 4 Dose Schedule 2002-07-26 Completed [facility] of 00:00:00 [facility] MMR 2002-07-26 Completed [facility] 00:00:00 [facility] Polio (IPV/OPV) 2002-07-26 Completed [facility] 00:00:00 [facility] Varicella 2002-07-26 Completed [facility] (varivax)(chicken 00:00:00 [facility] pox) [facility] HIB 4 Dose Schedule 2002-07-26 Completed [facility] of 00:00:00 [facility] MMR 2002-07-26 Completed [facility] 00:00:00 [facility] Polio (IPV/OPV) 2002-07-26 Completed [facility] 00:00:00 [facility] Varicella 2002-07-26 Completed [facility] (varivax)(chicken 00:00:00 [facility] pox) [facility] HIB 4 Dose Schedule 2002-07-26 Completed [facility] of 00:00:00 [facility] MMR 2002-07-26 Completed [facility] 00:00:00 [facility] Polio (IPV/OPV) 2002-07-26 Completed [facility] 00:00:00 [facility] Varicella 2002-07-26 Completed [facility] (varivax)(chicken 00:00:00 [facility] pox) [facility] HIB 4 Dose Schedule 2002-07-26 Completed [facility] of 00:00:00 [facility] HIB 4 Dose Schedule 2002-07-26 Completed [facility] of 00:00:00 [facility] MMR 2002-07-26 Completed [facility] 00:00:00 [facility] Polio (IPV/OPV) 2002-07-26 Completed [facility] 00:00:00 [facility] Varicella 2002-07-26 Completed [facility] (varivax)(chicken 00:00:00 [facility] pox) [facility] MMR 2002-07-26 Completed [facility] 00:00:00 [facility] Polio (IPV/OPV) 2002-07-26 Completed [facility] 00:00:00 [facility] Varicella 2002-07-26 Completed [facility] (varivax)(chicken 00:00:00 [facility] pox) [facility] HIB 4 Dose Schedule 2002-07-26 Completed [facility] 00:00:00 [facility] MMR 2002-07-26 Completed [facility] 00:00:00 [facility] Polio (IPV/OPV) 2002-07-26 Completed [facility] 00:00:00 [facility] Varicella 2002-07-26 Completed [facility] (varivax)(chicken 00:00:00 [facility] pox) [facility] HIB 4 Dose Schedule 2002-07-26 Completed [facility] 00:00:00 [facility] HIB 4 Dose Schedule 2002-07-26 Completed [facility] of 00:00:00 [facility] MMR 2002-07-26 Completed [facility] 00:00:00 [facility] Polio (IPV/OPV) 2002-07-26 Completed [facility] 00:00:00 [facility] Varicella 2002-07-26 Completed [facility] (varivax)(chicken 00:00:00 [facility] pox) [facility] HIB 4 Dose Schedule 2002-07-26 Completed [facility] of 00:00:00 [facility] MMR 2002-07-26 Completed [facility] 00:00:00 [facility] Polio (IPV/OPV) 2002-07-26 Completed [facility] 00:00:00 [facility] Varicella 2002-07-26 Completed [facility] (varivax)(chicken 00:00:00 [facility] pox) [facility] HIB 4 Dose Schedule 2002-07-26 Completed [facility]ity of 00:00:00 [facility] MMR 2002-07-26 Completed [facility] 00:00:00 [facility] MMR 2002-07-26 Completed [facility] 00:00:00 [facility] Polio (IPV/OPV) 2002-07-26 Completed [facility] 00:00:00 [facility] Varicella 2002-07-26 Completed [facility] (varivax)(chicken 00:00:00 [facility] pox) [facility] HIB 4 Dose Schedule 2002-07-26 Completed [facility] rs[facility] of 00:00:00 [facility] Polio (IPV/OPV) 2002-07-26 Completed [facility] 00:00:00 [facility] MMR 2002-07-26 Completed [facility] 00:00:00 [facility] Polio (IPV/OPV) 2002-07-26 Completed [facility] 00:00:00 [facility] Varicella 2002-07-26 Completed [facility] (varivax)(chicken 00:00:00 [facility] pox[facility] Varicella 2002-07-26 Completed [facility] (varivax)(chicken 00:00:00 [facility] pox) [facility] HIB 4 Dose Schedule 2002-07-26 Completed [facility] of 00:00:00 [facility] MMR 2002-07-26 Completed [facility] 00:00:00 [facility] Polio (IPV/OPV) 2002-07-26 Completed [facility] 00:00:00 [facility] Varicella 2002-07-26 Completed [facility] (varivax)(chicken 00:00:00 [facility] pox) [facility] HIB 4 Dose Schedule 2002-07-26 Completed [facility] 00:00:00 [facility] MMR 2002-07-26 Completed [facility] 00:00:00 [facility] Polio (IPV/OPV) 2002-07-26 Completed [facility] 00:00:00 [facility] Varicella 2002-07-26 Completed [facility] (varivax)(chicken 00:00:00 [facility] pox) [facility] HIB 4 Dose Schedule 2002-07-26 Completed [facility] of 00:00:00 [facility] MMR 2002-07-26 Completed [facility] 00:00:00 [facility] Polio (IPV/OPV) 2002-07-26 Completed [facility] 00:00:00 [facility] Varicella 2002-07-26 Completed [facility] (varivax)(chicken 00:00:00 [facility] pox) [facility] HIB 4 Dose Schedule 2002-07-26 Completed [facility] of 00:00:00 [facility] MMR 2002-07-26 Completed [facility] 00:00:00 [facility] Polio (IPV/OPV) 2002-07-26 Completed [facility] 00:00:00 [facility] Varicella 2002-07-26 Completed [facility] (varivax)(chicken 00:00:00 [facility] pox) [facility] HIB 4 Dose Schedule 2002-07-26 Completed [facility] 00:00:00 [facility] HIB 4 Dose Schedule 2002-07-26 Completed [facility] of 00:00:00 [facility] MMR 2002-07-26 Completed [facility] 00:00:00 [facility] Polio (IPV/OPV) 2002-07-26 Completed [facility] 00:00:00 [facility] Varicella 2002-07-26 Completed [facility] (varivax)(chicken 00:00:00 [facility] pox) [facility] HIB 4 Dose Schedule 2002-07-26 Completed [facility] of 00:00:00 [facility] MMR 2002-07-26 Completed [facility] 00:00:00 [facility] Polio (IPV/OPV) 2002-07-26 Completed [facility] 00:00:00 [facility] Varicella 2002-07-26 Completed [facility] (varivax)(chicken 00:00:00 [facility] pox) [facility] HIB 4 Dose Schedule 2002-07-26 Completed [facility] of 00:00:00 [facility] MMR 2002-07-26 Completed [facility] 00:00:00 [facility] Polio (IPV/OPV) 2002-07-26 Completed [facility] 00:00:00 [facility] Varicella 2002-07-26 Completed [facility] (varivax)(chicken 00:00:00 [facility] pox) [facility] DTAP 2002-01-31 Completed [facility] 00:00:00 [facility] HIB 4 Dose Schedule 2002-01-31 Completed [facility] rsity [facility] 00:00:00 [facility] Hep B, Adol or Pedi 2002-01-31 Completed Unive rsity of Dosage 00:00:00 [facility] DTAP 2002-01-31 Completed [facility] 00:00:00 [facility] HIB 4 Dose Schedule 2002-01-31 Completed [facility]ive rsity of 00:00:00 [facility] Hep B, Adol or Pedi 2002-01-31 Completed Unive rsity of Dosage 00:00:00 [facility] DTAP 2002-01-31 Completed [facility] 00:00:00 [facility] HIB 4 Dose Schedule 2002-01-31 Completed [facility] rsity of 00:00:00 [facility] Hep B, Adol or Pedi 2002-01-31 Completed [facility]ive rsity of Dosage 00:00:00 [facility] DTAP 2002-01-31 Completed [facility] 00:00:00 [facility] HIB 4 Dose Schedule 2002-01-31 Completed [facility] rsity of 00:00:00 [facility] Hep B, Adol or Pedi 2002-01-31 Completed [facility]ive rsity of Dosage 00:00:00 [facility] DTAP 2002-01-31 Completed [facility] 00:00:00 [facility] HIB 4 Dose Schedule 2002-01-31 Completed [facility] rsity of 00:00:00 [facility] Hep B, Adol or Pedi 2002-01-31 Completed [facility]ive rsity of Dosage 00:00:00 [facility] DTAP 2002-01-31 Completed [facility] 00:00:00 [facility] DTAP 2002-01-31 Completed [facility] 00:00:00 [facility] HIB 4 Dose Schedule 2002-01-31 Completed [facility] rsity of 00:00:00 [facility] Hep B, Adol or Pedi 2002-01-31 Completed [facility]ive [facility]ity of Dosage 00:00:00 [facility] DTAP 2002-01-31 Completed [facility] 00:00:00 [facility] HIB 4 Dose Schedule 2002-01-31 Completed [facility] 00:00:00 [facility] Hep B, Adol or Pedi 2002-01-31 Completed [facility]ive rsity of Dosage 00:00:00 [facility] HIB 4 Dose Schedule 2002-01-31 Completed [facility] 00:00:00 [facility] Hep B, Adol or Pedi 2002-01-31 Completed [facility]ive [facility]ity of Dosage 00:00:00 [facility] DTAP 2002-01-31 Completed [facility] 00:00:00 [facility] DTAP 2002-01-31 Completed [facility] 00:00:00 [facility] HIB 4 Dose Schedule 2002-01-31 Completed [facility]ity of 00:00:00 [facility] Hep B, Adol or Pedi 2002-01-31 Completed [facility]ity of Dosage 00:00:00 [facility] DTAP 2002-01-31 Completed [facility] 00:00:00 [facility] HIB 4 Dose Schedule 2002-01-31 Completed [facility] of 00:00:00 [facility] Hep B, Adol or Pedi 2002-01-31 Completed [facility]ive [facility]ity of Dosage 00:00:00 [facility] HIB 4 Dose Schedule 2002-01-31 Completed [facility]ity of 00:00:00 [facility] DTAP 2002-01-31 Completed [facility] 00:00:00 [facility] HIB 4 Dose Schedule 2002-01-31 Completed [facility] of 00:00:00 [facility] Hep B, Adol or Pedi 2002-01-31 Completed [facility]ity of Dosage 00:00:00 [facility] Hep B, Adol or Pedi 2002-01-31 Completed [facility] of Dosage 00:00:00 [facility] DTAP 2002-01-31 Completed [facility] 00:00:00 [facility] HIB 4 Dose Schedule 2002-01-31 Completed [facility] 00:00:00 [facility] Hep B, Adol or Pedi 2002-01-31 Completed [facility] of Dosage 00:00:00 [facility] DTAP 2002-01-31 Completed [facility] 00:00:00 [facility] HIB 4 Dose Schedule 2002-01-31 Completed [facility] 00:00:00 [facility] Hep B, Adol or Pedi 2002-01-31 Completed [facility] of Dosage 00:00:00 [facility] DTAP 2002-01-31 Completed [facility] 00:00:00 [facility] HIB 4 Dose Schedule 2002-01-31 Completed [facility] 00:00:00 [facility] Hep B, Adol or Pedi 2002-01-31 Completed [facility] of Dosage 00:00:00 [facility] DTAP 2002-01-31 Completed [facility] 00:00:00 [facility] HIB 4 Dose Schedule 2002-01-31 Completed [facility] of 00:00:00 [facility] Hep B, Adol or Pedi 2002-01-31 Completed [facility] of Dosage 00:00:00 [facility] DTAP 2002-01-31 Completed [facility] 00:00:00 [facility] HIB 4 Dose Schedule 2002-01-31 Completed [facility] 00:00:00 [facility] Hep B, Adol or Pedi 2002-01-31 Completed [facility] of Dosage 00:00:00 [facility] DTAP 2002-01-31 Completed [facility] 00:00:00 [facility] HIB 4 Dose Schedule 2002-01-31 Completed [facility] of 00:00:00 [facility] DTAP 2002-01-31 Completed [facility] 00:00:00 [facility] Hep B, Adol or Pedi 2002-01-31 Completed [facility] of Dosage 00:00:00 [facility] DTAP 2002-01-31 Completed [facility] 00:00:00 [facility] HIB 4 Dose Schedule 2002-01-31 Completed [facility] of 00:00:00 [facility] Hep B, Adol or Pedi 2002-01-31 Completed [facility] of Dosage 00:00:00 [facility] HIB 4 Dose Schedule 2002-01-31 Completed [facility] 00:00:00 [facility] DTAP 2002-01-31 Completed [facility] 00:00:00 [facility] HIB 4 Dose Schedule 2002-01-31 Completed [facility] 00:00:00 [facility] Hep B, Adol or Pedi 2002-01-31 Completed [facility] of Dosage 00:00:00 [facility] Hep B, Adol or Pedi 2002-01-31 Completed [facility] of Dosage 00:00:00 [facility] DTAP 2002-01-31 Completed [facility] 00:00:00 [facility] HIB 4 Dose Schedule 2002-01-31 Completed [facility] 00:00:00 [facility] Hep B, Adol or Pedi 2002-01-31 Completed [facility] of Dosage 00:00:00 [facility] DTAP 2002-01-31 Completed [facility] 00:00:00 [facility] HIB 4 Dose Schedule 2002-01-31 Completed [facility] 00:00:00 [facility] Hep B, Adol or Pedi 2002-01-31 Completed [facility] of Dosage 00:00:00 [facility] DTAP 2002-01-31 Completed [facility] 00:00:00 [facility] HIB 4 Dose Schedule 2002-01-31 Completed [facility] 00:00:00 [facility] Hep B, Adol or Pedi 2002-01-31 Completed [facility] of Dosage 00:00:00 [facility] DTAP 2002-01-31 Completed [facility] 00:00:00 [facility] HIB 4 Dose Schedule 2002-01-31 Completed [facility] 00:00:00 [facility] Hep B, Adol or Pedi 2002-01-31 Completed [facility] of Dosage 00:00:00 [facility] DTAP 2002-01-31 Completed [facility] 00:00:00 [facility] HIB 4 Dose Schedule 2002-01-31 Completed [facility] 00:00:00 [facility] Hep B, Adol or Pedi 2002-01-31 Completed [facility] of Dosage 00:00:00 [facility] DTAP 2002-01-31 Completed [facility] 00:00:00 [facility] HIB 4 Dose Schedule 2002-01-31 Completed [facility] 00:00:00 [facility] Hep B, Adol or Pedi 2002-01-31 Completed [facility] Dosage 00[facility]00:00 [facility] [facility] DTAP 2002-01-31 Completed [facility] 00:00:00 [facility] HIB 4 Dose Schedule 2002-01-31 Completed [facility] 00:00:00 [facility] Hep B, Adol or Pedi 2002-01-31 Completed [facility] Dosage 00:00:00 [facility] DTAP 2002-01-31 Completed [facility] 00:00:00 [facility] DTAP 2002-01-31 Completed [facility] 00:00:00 [facility] HIB 4 Dose Schedule 2002-01-31 Completed [facility] 00:00:00 [facility] Hep B, Adol or Pedi 2002-01-31 Completed [facility] Dosage 00:00:00 [facility] HIB 4 Dose Schedule 2002-01-31 Completed [facility] 00:00:00 [facility] DTAP 2002-01-31 Completed [facility] 00:00:00 [facility] HIB 4 Dose Schedule 2002-01-31 Completed [facility] 00:00:00 [facility] Hep B, Adol or Pedi 2002-01-31 Completed [facility] Dosage 00:00:00 [facility] Hep B, Adol or Pedi 2002-01-31 Completed [facility] Dosage 00:00:00 [facility] DTAP 2002-01-31 Completed [facility] 00:00:00 [facility] HIB 4 Dose Schedule 2002-01-31 Completed [facility] 00:00:00 [facility] Hep B, Adol or Pedi 2002-01-31 Completed [facility] Dosage 00:00:00 [facility] DTAP 2001 Completed [facility] 00:00:00 [facility] HIB 4 Dose Schedule 2001 Completed [facility] 00:00:00 [facility] Polio (IPV/OPV) 2001 Completed [facility] 00:00:00 [facility] Polio (IPV/OPV) 2001 Completed [facility] 00:00:00 [facility] DTAP 2001 Completed [facility] 00:00:00 [facility] HIB 4 Dose Schedule 2001 Completed [facility] 00:00:00 [facility] Polio (IPV/OPV) 2001 Completed [facility] 00:00:00 [facility] DTAP 2001 Completed [facility] 00:00:00 [facility] HIB 4 Dose Schedule 2001 Completed [facility] 00:00:00 [facility] Polio (IPV/OPV) 2001 Completed [facility] 00:00:00 [facility] DTAP 2001 Completed [facility] 00:00:00 [facility] HIB 4 Dose Schedule 2001 Completed [facility] 00:00:00 [facility] Polio (IPV/OPV) 2001 Completed [facility] 00:00:00 [facility] DTAP 2001 Completed [facility] 00:00:00 [facility] HIB 4 Dose Schedule 2001 Completed [facility] 00:00:00 [facility] Polio (IPV/OPV) 2001 Completed [facility] 00:00:00 [facility] DTAP 2001 Completed [facility] 00:00:00 [facility] DTAP 2001 Completed [facility] 00:00:00 [facility] HIB 4 Dose Schedule 2001 Completed [facility] 00:00:00 [facility] Polio (IPV/OPV) 2001 Completed [facility] 00:00:00 [facility] DTAP 2001 Completed [facility] 00:00:00 [facility] HIB 4 Dose Schedule 2001 Completed [facility] 00:00:00 [facility] HIB 4 Dose Schedule 2001 Completed [facility] 00:00:00 [facility] Polio (IPV/OPV) 2001 Completed [facility] 00:00:00 [facility] Polio (IPV/OPV) 2001 Completed [facility] 00:00:00 [facility] DTAP 2001 Completed [facility] 00:00:00 [facility] DTAP 2001 Completed [facility] 00:00:00 [facility] HIB 4 Dose Schedule 2001 Completed [facility] 00:00:00 [facility] Polio (IPV/OPV) 2001 Completed [facility] 00:00:00 [facility] DTAP 2001 Completed [facility] 00:00:00 [facility] HIB 4 Dose Schedule 2001 Completed [facility] 00:00:00 [facility] HIB 4 Dose Schedule 2001 Completed [facility] 00:00:00 [facility] Polio (IPV/OPV) 2001 Completed [facility] 00:00:00 [facility] DTAP 2001 Completed [facility] 00:00:00 [facility] HIB 4 Dose Schedule 2001 Completed [facility] 00:00:00 [facility] Polio (IPV/OPV) 2001 Completed [facility] 00:00:00 [facility] DTAP 2001 Completed [facility] 00:00:00 [facility] HIB 4 Dose Schedule 2001 Completed [facility] 00:00:00 [facility] Polio (IPV/OPV) 2001 Completed [facility] 00:00:00 [facility] DTAP 2001 Completed [facility] 00:00:00 [facility] Polio (IPV/OPV) 2001 Completed [facility] 00:00:00 [facility] HIB 4 Dose Schedule 2001 Completed [facility] 00:00:00 [facility] Polio (IPV/OPV) 2001 Completed [facility] 00:00:00 [facility] DTAP 2001 Completed [facility] 00:00:00 [facility] HIB 4 Dose Schedule 2001 Completed [facility] 00:00:00 [facility] Polio (IPV/OPV) 2001 Completed [facility] 00:00:00 [facility] DTAP 2001 Completed [facility] 00:00:00 [facility] HIB 4 Dose Schedule 2001 Completed [facility] 00:00:00 [facility] Polio (IPV/OPV) 2001 Completed [facility] 00:00:00 [facility] DTAP 2001 Completed [facility] 00:00:00 [facility] HIB 4 Dose Schedule 2001 Completed [facility] 00:00:00 [facility] Polio (IPV/OPV) 2001 Completed [facility] 00:00:00 [facility] DTAP 2001 Completed [facility] 00:00:00 [facility] DTAP 2001 Completed [facility] 00:00:00 [facility] HIB 4 Dose Schedule 2001 Completed [facility] 00:00:00 [facility] Polio (IPV/OPV) 2001 Completed [facility] 00:00:00 [facility] DTAP 2001 Completed [facility] 00:00:00 [facility] HIB 4 Dose Schedule 2001 Completed [facility] 00:00:00 [facility] Polio (IPV/OPV) 2001 Completed [facility] 00:00:00 [facility] HIB 4 Dose Schedule 2001 Completed [facility] 00:00:00 [facility] DTAP 2001 Completed [facility] 00:00:00 [facility] HIB 4 Dose Schedule 2001 Completed [facility] 00:00:00 [facility] Polio (IPV/OPV) 2001 Completed [facility] 00:00:00 [facility] DTAP 2001 Completed [facility] 00:00:00 [facility] HIB 4 Dose Schedule 2001 Completed [facility] 00:00:00 [facility] Polio (IPV/OPV) 2001 Completed [facility] 00:00:00 [facility] DTAP 2001 Completed [facility] 00:00:00 [facility] HIB 4 Dose Schedule 2001 Completed [facility] 00:00:00 [facility] Polio (IPV/OPV) 2001 Completed [facility] 00:00:00 [facility] Polio (IPV/OPV) 2001 Completed [facility] 00:00:00 [facility] DTAP 2001 Completed [facility] 00:00:00 [facility] HIB 4 Dose Schedule 2001 Completed [facility] 00:00:00 [facility] Polio (IPV/OPV) 2001 Completed [facility] 00:00:00 [facility] DTAP 2001 Completed [facility] 00:00:00 [facility] HIB 4 Dose Schedule 2001 Completed [facility] 00:00:00 [facility] Polio (IPV/OPV) 2001 Completed [facility] 00:00:00 [facility] DTAP 2001 Completed [facility] 00:00:00 [facility] HIB 4 Dose Schedule 2001 Completed [facility] 00:00:00 [facility] Polio (IPV/OPV) 2001 Completed [facility] 00:00:00 [facility] DTAP 2001 Completed [facility] 00:00:00 [facility] HIB 4 Dose Schedule 2001 Completed [facility] 00:00:00 [facility] Polio (IPV/OPV) 2001 Completed [facility] 00:00:00 [facility] DTAP 2001 Completed [facility] 00:00:00 [facility] DTAP 2001 Completed [facility] 00:00:00 [facility] HIB 4 Dose Schedule 2001 Completed [facility] 00:00:00 [facility] Polio (IPV/OPV) 2001 Completed [facility] 00:00:00 [facility] DTAP 2001 Completed [facility] 00:00:00 [facility] HIB 4 Dose Schedule 2001 Completed [facility] 00:00:00 [facility] Polio (IPV/OPV) 2001 Completed [facility] 00:00:00 [facility] HIB 4 Dose Schedule 2001 Completed [facility] 00:00:00 [facility] DTAP 2001 Completed [facility] 00:00:00 [facility] [place] HIB 4 Dose Schedule 2001 Completed [facility] 00:00:00 [facility] Polio (IPV/OPV) 2001 Completed [facility] 00:00:00 [facility] DTAP 2001 Completed [facility] 00:00:00 [facility] HIB 4 Dose Schedule 2001 Completed [facility] 00:00:00 [facility] Polio (IPV/OPV) 2001 Completed [facility] 00:00:00 [facility] DTAP 2001 Completed [facility] 00:00:00 [facility] HIB 4 Dose Schedule 2001 Completed [facility] 00:00:00 [facility] Hep B, Adol or Pedi 2001 Completed [facility] Dosage 00:00:00 [facility] Polio (IPV/OPV) 2001 Completed [facility] 00:00:00 [facility] Polio (IPV/OPV) 2001 Completed [facility] 00:00:00 [facility] DTAP 2001 Completed [facility] 00:00:00 [facility] [place] HIB 4 Dose Schedule 2001 Completed [facility] 00:00:00 [facility] Hep B, Adol or Pedi 2001 Completed [facility] Dosage 00:00:00 [facility] Polio (IPV/OPV) 2001 Completed [facility] 00:00:00 [facility] DTAP 2001 Completed [facility] 00:00:00 [facility] HIB 4 Dose Schedule 2001 Completed [facility] 00:00:00 [facility] Hep B, Adol or Pedi 2001 Completed [facility] Dosage 00:00:00 [facility] Polio (IPV/OPV) 2001 Completed [facility] 00:00:00 [facility] DTAP 2001 Completed [facility] 00:00:00 [facility] HIB 4 Dose Schedule 2001 Completed [facility] 00:00:00 [facility] Hep B, Adol or Pedi 2001 Completed [facility] Dosage 00:00:00 [facility] Polio (IPV/OPV) 2001 Completed [facility] 00:00:00 [facility] DTAP 2001 Completed [facility] 00:00:00 [facility] HIB 4 Dose Schedule 2001 Completed [facility] 00:00:00 [facility] Hep B, Adol or Pedi 2001 Completed [facility] Dosage 00:00:00 [facility] DTAP 2001 Completed [facility] 00:00:00 [facility] Polio (IPV/OPV) 2001 Completed [facility] 00:00:00 [facility] DTAP 2001 Completed [facility] 00:00:00 [facility] HIB 4 Dose Schedule 2001 Completed [facility] 00:00:00 [facility] Hep B, Adol or Pedi 2001 Completed [facility] Dosage 00:00:00 [facility] Polio (IPV/OPV) 2001 Completed [facility] 00:00:00 [facility] HIB 4 Dose Schedule 2001 Completed [facility] 00:00:00 [facility] DTAP 2001 Completed [facility] 00:00:00 [facility] [place] HIB 4 Dose Schedule 2001 Completed [facility] 00:00:00 [facility] Hep B, Adol or Pedi 2001 Completed [facility] Dosage 00:00:00 [facility] Polio (IPV/OPV) 2001 Completed [facility] 00:00:00 [facility] Hep B, Adol or Pedi 2001 Completed [facility] Dosage 00:00:00 [facility] Polio (IPV/OPV) 2001 Completed [facility] 00:00:00 [facility] DTAP 2001 Completed [facility] 00:00:00 [facility] DTAP 2001 Completed [facility] 00:00:00 [facility] HIB 4 Dose Schedule 2001 Completed [facility] 00:00:00 [facility] Hep B, Adol or Pedi 2001 Completed [facility] Dosage 00:00:00 [facility] Polio (IPV/OPV) 2001 Completed [facility] 00:00:00 [facility] HIB 4 Dose Schedule 2001 Completed [facility] 00:00:00 [facility] DTAP 2001 Completed [facility] 00:00:00 [facility] HIB 4 Dose Schedule 2001 Completed [facility] 00:00:00 [facility] Hep B, Adol or Pedi 2001 Completed [facility] Dosage 00:00:00 [facility] Polio (IPV/OPV) 2001 Completed [facility] 00:00:00 [facility] DTAP 2001 Completed [facility] 00:00:00 [facility] Hep B, Adol or Pedi 2001 Completed [facility] Dosage 00:00:00 [facility] HIB 4 Dose Schedule 2001 Completed [facility] 00:00:00 [facility] Hep B, Adol or Pedi 2001 Completed [facility] Dosage 00:00:00 [facility] Polio (IPV/OPV) 2001 Completed [facility] 00:00:00 [facility] DTAP 2001 Completed [facility] 00:00:00 [facility] HIB 4 Dose Schedule 2001 Completed [facility] 00:00:00 [facility] Hep B, Adol or Pedi 2001 Completed [facility] Dosage 00:00:00 [facility] Polio (IPV/OPV) 2001 Completed [facility] 00:00:00 [facility] Polio (IPV/OPV) 2001 Completed [facility] 00:00:00 [facility] DTAP 2001 Completed [facility] 00:00:00 [facility] HIB 4 Dose Schedule 2001 Completed [facility] 00:00:00 [facility] Hep B, Adol or Pedi 2001 Completed [facility] Dosage 00:00:00 [facility] Polio (IPV/OPV) 2001 Completed [facility] 00:00:00 [facility] DTAP 2001 Completed [facility] 00:00:00 [facility] HIB 4 Dose Schedule 2001 Completed [facility] 00:00:00 [facility] Hep B, Adol or Pedi 2001 Completed [facility] Dosage 00:00:00 [facility] Polio (IPV/OPV) 2001 Completed [facility] 00:00:00 [facility] DTAP 2001 Completed [facility] 00:00:00 [facility] HIB 4 Dose Schedule 2001 Completed [facility] 00:00:00 [facility] Hep B, Adol or Pedi 2001 Completed [facility] Dosage 00:00:00 [facility] Polio (IPV/OPV) 2001 Completed [facility] 00:00:00 [facility] DTAP 2001 Completed [facility] 00:00:00 [facility] HIB 4 Dose Schedule 2001 Completed [facility] 00:00:00 [facility] Hep B, Adol or Pedi 2001 Completed [facility] Dosage 00:00:00 [facility] Polio (IPV/OPV) 2001 Completed [facility] 00:00:00 [facility] DTAP 2001 Completed [facility] 00:00:00 [facility] DTAP 2001 Completed [facility] 00:00:00 [facility] HIB 4 Dose Schedule 2001 Completed [facility] 00:00:00 [facility] Hep B, Adol or Pedi 2001 Completed [facility] Dosage 00:00:00 [facility] Polio (IPV/OPV) 2001 Completed [facility] 00:00:00 [facility] DTAP 2001 Completed [facility] 00:00:00 [facility] HIB 4 Dose Schedule 2001 Completed [facility] 00:00:00 [facility] HIB 4 Dose Schedule 2001 Completed [facility] 00:00:00 [facility] Hep B, Adol or Pedi 2001 Completed [facility] Dosage 00:00:00 [facility] Polio (IPV/OPV) 2001 Completed [facility] 00:00:00 [facility] DTAP 2001 Completed [facility] 00:00:00 [facility] HIB 4 Dose Schedule 2001 Completed [facility] 00:00:00 [facility] Hep B, Adol or Pedi 2001 Completed [facility] Dosage 00:00:00 [facility] Polio (IPV/OPV) 2001 Completed [facility] 00:00:00 [facility] Hep B, Adol or Pedi 2001 Completed [facility] Dosage 00:00:00 [facility] DTAP 2001 Completed [facility] 00:00:00 [facility] HIB 4 Dose Schedule 2001 Completed [facility] 00:00:00 [facility] Hep B, Adol or Pedi 2001 Completed [facility] Dosage 00:00:00 [facility] Polio (IPV/OPV) 2001 Completed [facility] 00:00:00 [facility] DTAP 2001 Completed [facility] 00:00:00 [facility] Polio (IPV/OPV) 2001 Completed [facility] 00:00:00 [facility] HIB 4 Dose Schedule 2001 Completed [facility] 00:00:00 [facility] Hep B, Adol or Pedi 2001 Completed [facility] Dosage 00:00:00 [facility] Polio (IPV/OPV) 2001 Completed [facility] 00:00:00 [facility] DTAP 2001 Completed [facility] 00:00:00 [facility] HIB 4 Dose Schedule 2001 Completed [facility] 00:00:00 [facility] Hep B, Adol or Pedi 2001 Completed [facility] Dosage 00:00:00 [facility] Polio (IPV/OPV) 2001 Completed [facility] 00:00:00 [facility] DTAP 2001 Completed [facility] 00:00:00 [facility] HIB 4 Dose Schedule 2001 Completed [facility] 00:00:00 [facility] Hep B, Adol or Pedi 2001 Completed [facility] of Dosage 00:00:00 [facility] Polio (IPV/OPV) 2001 Completed [facility] 00:00:00 [facility] DTAP 2001 Completed [facility] 00:00:00 [facility] HIB 4 Dose Schedule 2001 Completed [facility] 00:00:00 [facility] Hep B, Adol or Pedi 2001 Completed [facility] of Dosage 00:00:00 [facility] Polio (IPV/OPV) 2001 Completed [facility] 00:00:00 [facility] DTAP 2001 Completed [facility] 00:00:00 [facility] HIB 4 Dose Schedule 2001 Completed [facility] 00:00:00 [facility] Hep B, Adol or Pedi 2001 Completed [facility] of Dosage 00:00:00 [facility] Polio (IPV/OPV) 2001 Completed [facility] 00:00:00 [facility] DTAP 2001 Completed [facility] 00:00:00 [facility] DTAP 2001 Completed [facility] 00:00:00 [facility] HIB 4 Dose Schedule 2001 Completed [facility] 00:00:00 [facility] Hep B, Adol or Pedi 2001 Completed [facility] Dosage 00:00:00 [facility] Polio (IPV/OPV) 2001 Completed [facility] 00:00:00 [facility] DTAP 2001 Completed [facility] 00:00:00 [facility] HIB 4 Dose Schedule 2001 Completed [facility] 00:00:00 [facility] Hep B, Adol or Pedi 2001 Completed [facility] Dosage 00:00:00 [facility] HIB 4 Dose Schedule 2001 Completed [facility] 00:00:00 [facility] Polio (IPV/OPV) 2001 Completed [facility] 00:00:00 [facility] DTAP 2001 Completed [facility] 00:00:00 [facility] HIB 4 Dose Schedule 2001 Completed [facility] 00:00:00 [facility] Hep B, Adol or Pedi 2001 Completed [facility] Dosage 00:00:00 [facility] Polio (IPV/OPV) 2001 Completed [facility] 00:00:00 [facility] Hep B, Adol or Pedi 2001 Completed [facility] Dosage 00:00:00 [facility] DTAP 2001 Completed [facility] 00:00:00 [facility] HIB 4 Dose Schedule 2001 Completed [facility] 00:00:00 [facility] Hep B, Adol or Pedi 2001 Completed [facility] Dosage 00:00:00 [facility] Polio (IPV/OPV) 2001 Completed [facility] 00:00:00 [facility] Hep B, Adol or Pedi 2001 Completed [facility] Dosage 00:00:00 [facility] Hep B, Adol or Pedi 2001 Completed [facility] Dosage 00:00:00 [facility] Hep B, Adol or Pedi 2001 Completed [facility] Dosage 00:00:00 [facility] Hep B, Adol or Pedi 2001 Completed [facility] Dosage 00:00:00 [facility] Hep B, Adol or Pedi 2001 Completed [facility] Dosage 00:00:00 [facility] Hep B, Adol or Pedi 2001 Completed [facility] Dosage 00:00:00 [facility] Hep B, Adol or Pedi 2001 Completed [facility] Dosage 00:00:00 [facility] Hep B, Adol or Pedi 2001 Completed [facility] Dosage 00:00:00 [facility] Hep B, Adol or Pedi 2001 Completed [facility] Dosage 00:00:00 [facility] Hep B, Adol or Pedi 2001 Completed [facility] Dosage 00:00:00 [facility] Hep B, Adol or Pedi 2001 Completed [facility] Dosage 00:00:00 [facility] Hep B, Adol or Pedi 2001 Completed [facility] Dosage 00:00:00 [facility] Hep B, Adol or Pedi 2001 Completed [facility] Dosage 00:00:00 [facility] Hep B, Adol or Pedi 2001 Completed [facility] Dosage 00:00:00 [facility] Hep B, Adol or Pedi 2001 Completed [facility] Dosage 00:00:00 [facility] Hep B, Adol or Pedi 2001 Completed [facility] Dosage 00:00:00 [facility] Hep B, Adol or Pedi 2001 Completed [facility] Dosage 00:00:00 [facility] Hep B, Adol or Pedi 2001 Completed [facility] Dosage 00:00:00 [facility] Hep B, Adol or Pedi 2001 Completed [facility] Dosage 00:00:00 [facility] Hep B, Adol or Pedi 2001 Completed [facility] Dosage 00:00:00 [facility] Hep B, Adol or Pedi 2001 Completed [facility] Dosage 00:00:00 [facility] Hep B, Adol or Pedi 2001 Completed [facility] Dosage 00:00:00 [facility] Hep B, Adol or Pedi 2001 Completed [facility] Dosage 00:00:00 [facility] Hep B, Adol or Pedi 2001 Completed [facility] Dosage 00:00:00 [facility] Hep B, Adol or Pedi 2001 Completed [facility] Dosage 00:00:00 [facility] Hep B, Adol or Pedi 2001 Completed [facility] Dosage 00:00:00 [facility] Hep B, Adol or Pedi 2001 Completed [facility] Dosage 00:00:00 [facility] Hep B, Adol or Pedi 2001 Completed [facility] Dosage 00:00:00 [facility] Hep B, Adol or Pedi 2001 Completed [facility] Dosage 00:00:00 [facility] Hep B, Adol or Pedi 2001 Completed [facility] Dosage 00:00:00 [facility] Hep B, Adol or Pedi 2001 Completed [facility] Dosage 00:00:00 [facility] Hep B, Adol or Pedi 2001 Completed [facility] Dosage 00:00:00 [facility] Vital Signs Vital Name Observation Time Observation Value Comments Source Systolic blood 2020-01-31 15:25:00 114 mm[Hg] [facility] pressure [facility] Diastolic blood 2020-01-31 15:25:00 60 mm[Hg] [facility] pressure [facility] Heart rate 2020-01-31 15:25:00 57 /min [facility] Body temperature 2020-01-31 15:25:[address] [facility] 2020-01-31 15:25:00 18 [facility] 2020-01-31 15:25:00 175.3 cm [facility] Body weight 2020-01-31 15:25:00 54.159 kg [facility] BMI 2020-01-31 15:25:00 17.63 kg/m2 [facility] Oxygen saturation in 2020-01-31 15:25:00 96 /min [facility] Systolic blood 2019-10-26 18:34:00 110 mm[Hg] [facility] Diastolic blood 2019-10-26 18:34:00 65 mm[Hg] [facility] pressure [facility] Heart rate 2019-10-26 18:34:00 80 /min [facility] Body temperature 2019-10-26 18:34:00 37 K[facility]in [facility] Respiratory rate 2019-10-26 18:34:00 18 /min [facility] Body height 2019-10-26 18:34:00 172.7 cm [facility] Body weight 2019-10-26 18:34:00 52.98 kg [facility] BMI 2019-10-26 18:34:00 17.76 kg/m2 [facility] Oxygen saturation in 2019-10-26 18:34:00 100 /min [facility] Arterial blood by [facility] Pulse oxim[facility] Systolic blood 2019-05-24 22:11:00 114 mm[Hg] [facility] pressure [facility] Diastolic blood 2019-05-24 22:11:00 64 mm[Hg] [facility] pressure [facility] Heart rate 2019-05-24 22:11:00 70 /min [facility] Body temperature 2019-05-24 22:11:00 36.78 [facility] Respiratory rate 2019-05-24 22:11:00 16 /min [facility] Body height 2019-05-24 22:11:00 173.4 cm [facility] Body weight 2019-05-24 22:11:00 50.213 kg [facility] BMI 2019-05-24 22:11:00 16.71 kg/m2 [facility] Oxygen saturation in 2019-05-24 22:11:00 98 /min [facility] Arterial blood by [facility] Pulse oximetry Branch Procedures Procedure Date / Time Performing Clinician Source Performed ASSIGNMENT OF BENEFITS 2020-01-31 15:19:31 Doctor Unassigned, No [facility] [place] [facility] MENACTRA (MCV4-D) 2019-05-24 22:51:[address] [facility] VACCINE [facility] MENINGOCOCCAL B 2019-05-24 22:51:53 Romelia Pena [facility] VACCINE(TRUMENBA) 2 OR 3 Medical [place] DOSE SERIES, IM Encounters Start End Encounter Admission Attending Care Care Encounter Source Date/Time Date/Time Type Type Clinicians Facility Department ID 2020-04-30 2020-04-30 Refill Jean [facility] [id number] [facility] 00:00:00 00:00:00 Romelia [place] [id number] [id number] [phone] Co dical nal 225 [facility] 2020-03-10 2020-03-10 Refill Jean [facility] 1.2.840.114 [id number] Univers 00:00:00 00:00:00 Romelia [place] [id number] [id number] [phone] Co dical nal 044 [facility] 2020-01-31 2020-01-31 Office Jean [facility] 1.2.840.114 [id number] Univers 10:20:16 10:54:29 Visit Romelia [place]enhall [id number] [id number] [phone] [facility] 225 [facility] 2020-01-31 2020-01-31 Outpatient R JEAN [facility] [id number] Univers 10:10:00 10:10:00 ROMELIA [facility] 2020-01-31 2020-01-31 Telephone Jean [facility] [id number] Univers 00:00:00 00:00:00 Romelia [place] [id number] [id number] [phone] Co dical nal 225 [facility] 2020-01-31 2020-01-31 Orders Doctor ZBIGNIEW 1.2.840.114 [id number] Univers 00:00:00 00:00:00 Only Unassigned, TAYLA [id number] [facility] [id number] Marlon as [phone] [address] 2020-01-16 2020-01-16 Outpatient R JEAN [facility] [id number] Univers 10:20:00 10:20:00 ROMELIA italix [facility] 2020-01-08 2020-01-[address] [facility] 1.2.840.114 [id number] Univers 00:00:00 00:00:00 Romelia A [place] [id number] [id number] [phone] [address] 2019-12-13 2019-12-13 Outpatient R JEAN [facility] [id number] Univers 09:30:00 09:30:00 ROMELIA warren [facility] 2019-11-22 2019-11-22 Outpatient R JEAN [facility] [id number] Univers 08:50:00 08:50:00 ROMELIA ity [facility] 2019-11-21 2019-11-[address] [facility] 1.2.840.114 [id number] Univers 00:00:00 00:00:00 Romelia A [place] [id number] [id number] [phone] Co dic[address] 2019-11-09 2019-11-09 Outpatient R JJ [facility] [id number] Univers 10:20:00 10:20:00 BRANDON ity [facility] 2019-11-01 2019-11-[address] [facility] [id number] Univers 00:00:00 00:00:00 Romelia A [place] [id number] [id number] [phone] Co dic[address] 2019-10-26 2019-10-26 Cryptoanalysis Teacher 2, Adc Lab [facility] 1.2.840.114 [id number] Univers 14:14:35 16:43:50 Visit Brandon Zheng [id number] [id number] [phone] [facility] 353 [facility] 2019-10-26 2019-10-26 Office Jj [facility] 1.2.840.114 [id number] Univers 13:28:21 14:07:02 Visit Brandon [place]enh[place] [id number] [id number] [phone] [address] 2019-10-26 2019-10-26 Outpatient R JJ [facility] [id number] Univers 13:20:00 13:20:00 BRANDON ity [facility] 2019-10-23 2019-10-[address] [facility] 1.2.840.114 [id number] Univers 00:00:00 00:00:00 Romelia Mendenhall [id number] [id number] [phone] [address] 2019-09-20 2019-09-20 Georgie Pena [facility] 1.2.840.114 [id number] Univers 00:00:00 00:00:00 Romelia Mendenhall [id number] [id number] [phone] [address] 2019-08-22 2019-08-23 Telemedicdean Pena [facility] 1.2.840.114 [id number] Univers 07:58:17 09:03:18 ne Visit Romelia Mendenhall [id number] [id number] [phone] [address] 2019-08-22 2019-08-22 Outpatient R JEAN [facility] [id number] Univers 14:40:00 14:40:00 ROMELIA ity [facility] 2019-08-21 2019-08-21 Outpatient R JEAN [facility] [id number] Univers 11:00:00 11:00:00 ROMELIA ity [facility] 2019-08-21 2019-08-[address] [facility] 1.2.840.114 [id number] Univers 07:32:08 07:42:08 ne Visit Romelia A [place] [id number] [id number] [phone] [address] 2019-08-20 2019-08-[address] [facility] 1.2.840.114 [id number] Univers 00:00:00 00:00:00 Romelia A [place] [id number] [id number] [phone] [address] 2019-07-18 2019-07-[address] [facility] 1.2.840.114 [id number] Univers 00:00:00 00:00:00 Romelia A [place] [id number] [id number] [phone] [address] 2019-06-04 2019-06-04 Anupam Pena [facility] [id number] Univers 00:00:00 00:00:00 Romelia A [place] [id number] [id number] [phone] [address] 2019-05-28 2019-05-[address] [facility] 1.2.840.114 [id number] Univers 00:00:00 00:00:00 Romelia A [place] [id number] [id number] [phone] [address] 2019-05-24 2019-05-24 Billing Only, Adc Nilam Patel [facility] 1.2.84 0.114 [id number] Univers 16:50:31 17:05:12 Encounter Romelia Pena 350.1.1 3.10 [id number] [phone] [address] 2019-05-24 2019-05-24 Office Jean [facility] 1.2.840.114 [id number] [facility] 15:21:49 17:04:42 Visit Romelia Mendenhall [id number] [id number] [phone] [address] 2019-05-24 2019-05-24 Telephone Jean [facility] [id number] Univers 00:00:00 00:00:00 Romelia Mendenhall [id number] [id number] [phone] [address] 2019-01-03 2019-01-03 Refill Jean [facility] 1.2.840.114 [id number] Univers 00:00:00 00:00:00 Romelia Mendenhall [id number] [id number] [phone] [address] 2018-12-19 2018-12-19 Telephone Jean [facility] [id number] Univers 00:00:00 00:00:00 Romelia Mendenhall [id number] [id number] [phone] [address] 2018-12-07 2018-12-07 Refnatanael Pena [facility] 1.2.840.114 [id number] Univers 00:00:00 00:00:00 Romelia Spencerton [id number] [place] [id number] Estela griggs Professio [phone] Co dical nal 225 Branch Building Results This patient has no known results.
[2022-07-15] MEDS ORDERED: METHADONE HCL 10 MG TAB PO ONE (21:50)
[2022-07-15] MEDS ORDERED: LORazepam 2 MG/ML VIAL ONE (21:51)
[2022-07-15] MEDS ORDERED: ONDANSETRON 4 MG/2 ML VIAL ONE (21:51)
[2022-07-15] MEDS ORDERED: NA CHLORIDE 0.9% 1,000 ML ONE (21:51)
[2022-07-15] MEDS ORDERED: D5 0.45 NS 1,000 ML IV ONE (21:52)
[2022-07-15 21:54] LABS: Hematocrit 44.5 % (39.6-49.0); Lymphocytes % 27.5 % (15.3-44.8); MCV 83.8 fL (80-100); RBC Red Blood Cell Count 5.32 M/uL (4.33-5.43)
[2022-07-15 21:58] LABS: Protime INR 1.15
[2022-07-15 22:09] LABS: ALT/SGPT 27 U/L (16-61); AST/SGOT 12 U/L (15-37); Albumin 4.9 g/dL (3.4-5.0); Alkaline Phosphatase 80 U/L (45-117); BUN Blood Urea Nitrogen 25 mg/dL (7-18); Bicarbonate 24 mEq/L (21-32); Bilirubin Direct 0.1 mg/dL (0-0.2); Bilirubin Total 0.8 mg/dL (0.2-1.0); Glomerular Filtration Rate 118 ml/min (=/>90); Glucose Level 129 mg/dL (74-106); Potassium 3.3 mEq/L (3.5-5.1); Protein, Total 9.4 g/dL (6.4-8.2); Sodium Level 135 mEq/L (136-145)
[2022-07-15 23:21] LABS: Urine Blood Negative (Negative); Urine Glucose Negative (Negative); Urine Protein Negative (Negative); Urine Specific Gravity 1.015 (1.005-1.030); Urine pH 6.5 (5.0-7.0)
[2022-07-15 23:45] LABS: Barbiturates NEGATIVE (NEGATIVE); Benzodiazepines POSITIVE (NEGATIVE); Cocaine POSITIVE (NEGATIVE); METHAMPHETAM NEGATIVE (NEGATIVE); Methadone NEGATIVE (NEGATIVE); Opiates NEGATIVE (NEGATIVE); Phencyclidine NEGATIVE (NEGATIVE); THC Cannibis POSITIVE (NEGATIVE)
[2022-07-16] MEDS ORDERED: PROMETHAZINE 25 MG TABLET ONE (02:05)
[2022-07-16] MEDS ORDERED: chlordiazePOXIDE HCl 25 MG CAP ONE (02:06)
--- NOTE | 2022-07-16 02:06 | ER ---
Nurse's Notes [facility] Name: Dion Laguna Age: 21 yrs Sex: Male : 2000 Arrival Date: 07/15/2022 Time: 21:12 Bed 6 Private MD: Diagnosis: Nausea with vomiting, unspecified;Opioid dependence with withdrawal;Polysubstance abuse, cocaine abuse, cannabis abuse, opiate withdrawal, benzodiazepine withdrawal, acute anxiety, persistent vomiting Presentation: 07/15 21:26 Chief complaint: Patient states: States "I stopped taking fentanyl to try to get ll3 healthier and I cant stop vomiting", reports months of recreational use of fentanyl, c/o N/V X 2-3 days. Coronavirus screen: Vaccine status: Patient reports being unvaccinated. nausea, vomiting. Ebola Screen: No symptoms or risks identified at this time. Initial Sepsis Screen: Does the patient meet any 2 criteria? HR > 90 bpm. No. Patient's initial sepsis screen is negative. Does the patient have a suspected source of infection? No. Patient's initial sepsis screen is negative. Risk Assessment: Do you want to hurt yourself or someone else? Patient reports no desire to harm self or others. Onset of symptoms was July 12, 2022. 21:26 Method Of Arrival: Wheelchair ll3 21:26 Acuity: KIRK 3 ll3 Historical: - Allergies: 21:28 No Known Allergies; ll3 - Home Meds: 21:28 None [Active]; ll3 - PMHx: 21:28 ADD/ADHD; ll3 - PSHx: 21:28 None; ll3 - Immunization history:: Client reports having NOT received the Covid vaccine. - Social history:: Smoking status: Reported history of juuling and/or vaping. - Family history:: not pertinent. Screenin:17 Abuse screen: Denies threats or abuse. Denies injuries from another. Nutritional ha1 screening: No deficits noted. Tuberculosis screening: No symptoms or risk factors identified. 21:44 [facility] ED Fall Risk Assessment (Adult) Score/Fall Risk Level 0 - 2 = Low Risk. as6 Assessment: 21:17 General: Appears ill, Behavior is calm, cooperative. Pain: Complains of pain in abdomen ha1 Pain does not radiate. Pain currently is 9 out of 10 on a pain scale. Quality of pain is described as crampy. Neuro: Level of Consciousness is awake, alert, obeys commands, Oriented to person, place, time, situation, Reports Fentanyl withdraw . Cardiovascular: Capillary refill < 3 seconds Patient's skin is warm and dry. Respiratory: Airway is patent Respiratory effort is even, unlabored, Respiratory pattern is regular, symmetrical. GI: Abdomen is flat, non-distended, Bowel sounds present X 4 quads. Abd is soft and non tender X 4 quads. Reports lower abdominal pain, diarrhea, nausea, vomiting. : No signs and/or symptoms were reported regarding the genitourinary system. EENT: No signs and/or symptoms were reported regarding the EENT system. Derm: No signs and/or symptoms reported regarding the dermatologic system. Musculoskeletal: Circulation, motion, and sensation intact. Range of motion: intact in all extremities. 22:50 General: pt resting in bed. pt encouraged to give urine sample . as6 Vital Signs: 21:26 BP 91 / 70; Pulse 112; Resp 18; Temp 99.3(O); Pulse Ox 98% on R/A; Weight 68.04 kg (R); ll3 Height 5 ft. 10 in. (R); Pain 0/10; 22:48 BP 124 / 71; Pulse 78; Resp 19 S; Pulse Ox 96% on R/A; as6 07/16 00:20 BP 117 / 61; Pulse 63; Resp 20 S; Pulse Ox 98% on R/A; as6 07/15 21:26 Body Mass Index 21.52 (68.04 kg, 177.8 cm) ll3 07/15 21:26 Pain Scale: Adult ll3 ED Course: 07/15 21:12 Patient arrived in ED. ja2 21:17 Patient has correct armband on for positive identification. Placed in gown. Bed in low ha1 position. Call light in reach. Side rails up X 1. 21:19 Andrea Dickinson MD is Attending Physician. sp4 21:28 Triage completed. ll3 21:28 Arm band placed on Patient placed in an exam room, on a stretcher, on pulse oximetry. ll3 21:30 Jerry Myers RN is Primary Nurse. as6 21:30 Inserted saline lock: 20 gauge in right forearm, using aseptic technique. Blood as6 collected. 03/17 02:04 Guevara Riggins MD is Referral Physician. sp4 Administered Medications: 07/15 21:40 Drug: NS 0.9% IV 1000 ml Route: IV; Rate: 1 bolus; Site: right forearm; ha1 21:40 Drug: D5-NS IV 1000 ml Route: IV; Rate: 125 ml/hr; Site: right forearm; ha1 21:40 Drug: Ativan IVP 2 mg Route: IVP; Site: right forearm; ha1 21:48 Drug: Ondansetron IVP 4 mg Route: IVP; Site: right forearm; ha1 21:50 Drug: methaDONE PO 10 mg Route: PO; ha1 Outcome: 07/16 02:05 Discharge ordered by . sp4 Signatures: Elsie Muñiz Ashby, RN RN as6 Rasheed Mclaughlin RN RN ll3 Laura Leyva RN RN ha1 Andrea Dickinson MD MD sp4
--- NOTE | 2022-07-16 02:06 | EDPHYS ---
Physician Documentation [facility] Name: Dion Laguna Age: 21 yrs Sex: Male : 2000 Arrival Date: 07/15/2022 Time: 21:12 Bed 6 Private MD: ED Physician Andrea Dickinson HPI: 07/15 21:19 This 21 yrs old Male presents to ER via Unassigned with complaints of sp4 Vomiting, Drug Withdrawl. 07/16 01:53 21-year-old male brought in by his mother for persistent vomiting in the past 3 days sp4 associated with drug withdrawal symptoms. 01:54 Patient states that he has taken fentanyl street tablets for the past 5 to 6 months up sp4 to 5 tablets a day. Patient decided to stop taking fentanyl but developed persistent vomiting 3 days ago associated with generalized weakness, symptoms of opiate withdrawal, and anxiety. Patient also reported using street Xanax for anxiety and denied any other drugs. Patient is here for persistent vomiting. . Historical: - Allergies: 07/15 21:28 No Known Allergies; ll3 - Home Meds: 21:28 None [Active]; ll3 - PMHx: 21:28 ADD/ADHD; ll3 - PSHx: 21:28 None; ll3 - Immunization history:: Client reports having NOT received the Covid vaccine. - Social history:: Smoking status: Reported history of juuling and/or vaping. - Family history:: not pertinent. ROS: 07/16 01:56 Constitutional: Negative for fever, and weight loss, positive for chills, generalized sp4 weakness, feeling unwell, and vomiting, also for anxiety Eyes: Negative for injury, pain, redness, and discharge, ENT: Negative for injury, pain, and discharge, Neck: Negative for injury, pain, and swelling, Cardiovascular: Negative for chest pain, palpitations, and edema, Respiratory: Negative for shortness of breath, cough, wheezing, and pleuritic chest pain, Abdomen/GI: Negative for abdominal pain, diarrhea, and constipation, positive for nausea and persistent vomiting Back: Negative for injury positive for diffuse pain and body aches : Negative for injury, bleeding, discharge, and swelling, MS/Extremity: Negative for injury and deformity, Skin: Negative for injury, rash, and discoloration, Neuro: Negative for headache, weakness, numbness, tingling, and seizure, Psych: Negative for depression, positive for anxiety Allergy/Immunology: Negative for hives, rash, and allergies Endocrine: Negative for neck swelling, polydipsia, polyuria, polyphagia, and weight changes Hematologic/Lymphatic: Negative for swollen nodes, abnormal bleeding, and unusual bruising Exam: 01:56 Constitutional: This is a well developed, well nourished patient who is awake, alert, sp4 uncomfortable appearing male dry heaving on exam Head/Face: Normocephalic, atraumatic. Eyes: Pupils equal round and reactive to light, extra-ocular motions intact. Lids and lashes normal. Conjunctiva and sclera are not injected. Cornea within normal limits. Periorbital areas with no swelling, redness, or edema. ENT: Nares patent. No nasal discharge, no septal abnormalities noted. Tympanic membranes are normal and external auditory canals are clear. Oropharynx with no redness, swelling, or masses, exudates, or evidence of obstruction, uvula midline. Mucous membranes moist. Neck: Trachea midline, no thyromegaly or masses palpated, and no cervical lymphadenopathy. Supple, full range of motion without nuchal rigidity, or vertebral point tenderness. No Meningismus. Chest/axilla: Normal chest wall appearance and motion. Nontender with no deformity. No lesions are appreciated. Cardiovascular: Regular tachycardia rhythm with a normal S1 and S2. No gallops, murmurs, or rubs. Normal PMI, no JVD. No pulse deficits. Respiratory: Lungs have equal breath sounds bilaterally, clear to auscultation and percussion. No rales, rhonchi or wheezes noted. No increased work of breathing, no retractions or nasal flaring. Abdomen/GI: Soft, non-tender, with normal bowel sounds. No distension or tympany. No guarding or rebound. No evidence of tenderness throughout. Back: No spinal tenderness. No costovertebral tenderness. Skin: Warm, dry with normal turgor. Normal color with no rashes, no lesions, and no evidence of cellulitis. MS/ Extremity: Pulses equal, no cyanosis. Neurovascular intact. Full, normal range of motion. Neuro: Awake and alert, GCS 15, oriented to person, place, time, and situation. Cranial nerves II-XII grossly intact. Motor strength 5/5 in all extremities. Sensory grossly intact. Psych: Awake, alert, with orientation to person, place and time. Anxious appearing, cooperative behavior 01:56 ECG was reviewed by the Attending Physician. EKG time 213207/15/2022, sinus rhythm at sp4 the rate of 99, no ST elevation or depression, no ectopy, normal EKG Vital Signs: 07/15 21:26 BP 91 / 70; Pulse 112; Resp 18; Temp 99.3(O); Pulse Ox 98% on R/A; Weight 68.04 kg (R); ll3 Height 5 ft. 10 in. (R); Pain 0/10; 22:48 BP 124 / 71; Pulse 78; Resp 19 S; Pulse Ox 96% on R/A; as6 07/16 00:20 BP 117 / 61; Pulse 63; Resp 20 S; Pulse Ox 98% on R/A; as6 07/15 21:26 Body Mass Index 21.52 (68.04 kg, 177.8 cm) ll3 07/15 21:26 Pain Scale: Adult ll3 MDM: 07/15 21:24 Patient medically screened. snw 07/16 01:56 Differential diagnosis: Nonspecific abd pain, gastritis, Polysubstance abuse, sp4 polysubstance withdrawal, opiate withdrawal, anxiety, adverse drug effect. Data reviewed: vital signs, nurses notes, lab test result(s), CBC, drug level(s), electrolytes, hepatic panel, urinalysis, urine drug screen, EKG. 01:56 Consideration of Admission/Observation Patient was admitted/placed on observation. sp4 Escalation of care including admission/observation considered. Patient was evaluated by the [facility] counselor who reported that patient does not want commitment for acute psychiatric issues, there is no suicidality. ED course: Patient was managed for his symptoms with p.o. and IV medications. Patient was advised to enter drug rehab with detoxification unit. Also advised to attend Narcotics Anonymous meetings. Patient tested positive for cocaine and cannabis, suspect polysubstance abuse and polysubstance withdrawal also anxiety associated with cocaine abuse. Will strongly advised patient to discontinue drug use. Will provide Librium 25 mg 3 times a day with taper in the next 10 days. 07/15 21:37 Order name: EKG; Complete Time: 21:38 sp4 07/15 21:37 Order name: Saline Lock; Complete Time: 21:38 07/15 21:37 Order name: EKG - Nurse/Tech; Complete Time: 21:39 07/15 21:37 Order name: IV Saline Lock; Complete Time: 21:39 07/15 21:37 Order name: Labs collected and sent; Complete Time: 21:41 07/15 21:37 Order name: Suicide Screening ([place]); Complete Time: 21:44 07/15 21:37 Order name: Urine Dipstick-Ancillary (obtain specimen); Complete Time: 00:05 07/15 21:37 Order name: Acetaminophen; Complete Time: 00:33 07/15 21:37 Order name: Basic Metabolic Panel; Complete Time: 00:33 07/15 21:37 Order name: Hepatic Function; Complete Time: 00:33 07/15 21:37 Order name: PT-INR; Complete Time: 00:33 07/15 21:37 Order name: Urine Drug Screen; Complete Time: 00:33 07/15 21:37 Order name: CBC with Diff; Complete Time: 00:33 07/15 21:37 Order name: ETOH Level; Complete Time: 00:33 07/15 21:37 Order name: Ptt, Activated; Complete Time: 00:33 07/15 21:37 Order name: Salicylate; Complete Time: 00:33 07/15 23:21 Order name: Urine Dipstick-Ancillary; Complete Time: 00:33 EDMS EC:56 Rate is 99 beats/min. Rhythm is regular. QRS [place] is Normal. [place] interval is normal. QRS sp4 interval is normal. T waves are Normal. No ST changes noted. Clinical impression: No evidence of ischemia. Interpreted by me. Administered Medications: 07/15 21:40 Drug: NS 0.9% IV 1000 ml Route: IV; Rate: 1 bolus; Site: right forearm; ha1 21:40 Drug: D5-NS IV 1000 ml Route: IV; Rate: 125 ml/hr; Site: right forearm; ha1 21:40 Drug: Ativan IVP 2 mg Route: IVP; Site: right forearm; ha1 21:48 Drug: Ondansetron IVP 4 mg Route: IVP; Site: right forearm; ha1 21:50 Drug: methaDONE PO 10 mg Route: PO; ha1 Disposition Summary: 07/16/22 02:05 Discharge Ordered Location: Home sp4 Problem: new sp4 Symptoms: have improved sp4 Condition: Stable sp4 Diagnosis - Nausea with vomiting, unspecified sp4 - Opioid dependence with withdrawal sp4 - Polysubstance abuse, cocaine abuse, cannabis abuse, opiate withdrawal, sp4 benzodiazepine withdrawal, acute anxiety, persistent vomiting Followup: sp4 - With: Guevara Riggins MD - When: 1 week - Reason: Recheck today's complaints Forms: - Medication Reconciliation Form sp4 - Thank You Letter sp4 - Antibiotic Education sp4 - Prescription Opioid Use sp4 Signatures: Dispatcher [employer] EDMS Yvonne Gama FNP-C [employer]ER-Csnw Rasheed Mclaughlin RN RN 3 Laura Leyva RN RN ha1 Andrea Dickinson MD MD sp4
[2022-07-16 08:18] VITALS: TEMP 97.5
[2022-07-16 08:53] VITALS: BP 127/70; O2SAT 99
--- NOTE | 2022-07-19 17:45 | EKG ---
Test Date: 2022-07-15 Test Time: 21:33:45 Medical Csr: SCARLETT MEASUREMENT RESULTS: Intervals: Rate: 99 PA: 138 QRSD: 74 QT: 334 QTc: 428 [place]: P: 28 PA: 138 QRS: 26 T: 63 INTERPRETIVE STATEMENTS: Normal sinus rhythm Nonspecific T wave abnormality Abnormal ECG No previous ECG available for comparison Electronically Signed On 07-19-22 17:37:51 CDT by Azar Goodwin
== END 2022-07-16 02:31 | disposition home or self-care (01) ==
LOC: ER 21:08
DX: R11.2 Nausea with vomiting, unspecified (principal); F11.23 Opioid dependence with withdrawal; F14.10 Cocaine abuse, uncomplicated; F12.10 Cannabis abuse, uncomplicated; F41.9 Anxiety disorder, unspecified
CPT/HCPCS: 96365; 93005; 85025; 80048; 36415; 85610; 80076; 85730; 81003; 80307; 96375; 99284; 96366; Q0169; J2405; J7799; J7030; G0480 ×3